=== PATIENT | female | born 1950 | race Caucasian/White ===

== ENCOUNTER 2018-05-14 20:03 | Inpatient (IN) | payer MEDICARE ==
[~2018-05-14] VITALS: Ht 172.7 cm; Wt 55.4 kg
[~2018-05-14 20:03] MED LIST: ASPI-378 PO; CHOL20007 PO; GABA300C10 PO; HYDR-531 PO; IBUP200C14 PO; LORA-655 PO; ONDA-143 PO; SERT-138 PO
[2018-05-14 21:03] LABS: Basophils # (auto) 0 uL; Basophils % (auto) 0.5 % (0.0-2.0); Eosinophils # (auto) 0.1 uL; Eosinophils % (auto) 1.2 % (0.0-7.0); Hematocrit 40.6 % (36.0-46.0); Hemoglobin 13.4 g/dL (12.2-16.2); Lymphocytes # (auto) 1.9 uL; Lymphocytes % (auto) 26.3 % (10.0-50.0); Mean Corpuscular Hemoglobin 31.6 pg (28.0-32.0); Mean Corpuscular Hgb Conc. 33.1 g/dL (32.0-36.0); Mean Corpuscular Volume 95.6 fL (80.0-100.0); Monocytes # (auto) 0.7 uL; Monocytes % (auto) 8.9 % (0.0-12.0); Neutrophils # (auto) 4.6 uL; Neutrophils % (auto) 63.1 % (37.0-80.0); Nucleated Red Blood Cells % 0.1 %; Platelet Count (auto) 342 10^3/uL (140-450); Red Blood Cells 4.24 10^6/uL (4.0-5.20); Red Cell Distribution Width 13.1 % (11.8-14.3); White Blood Cell 7.4 10^3/uL (4.4-10.8)
[2018-05-14 21:12] LABS: Albumin 3.7 g/dL (3.4-5.0); Anion Gap 8 (5-15); Blood Urea Nitrogen 16 mg/dL (7-18); Carbon Dioxide 24 mmol/L (21-32); Chloride 104 mmol/L (98-107); Glucose 91 mg/dL (74-106); Potassium 3.5 mmol/L (3.5-5.1); Sodium 136 mmol/L (136-145)
[2018-05-14 21:15] LABS: INR 0.94 (0.9-1.15); Partial Thromboplastin Time 29.8 sec (23.78-33.04); Prothrombin Time 10.1 sec (9.27-12.13)
[2018-05-14 21:17] LABS: Alanine Aminotransferase 61 U/L (13-56); Alkaline Phosphatase 74 U/L (45-117); Aspartate Aminotransferase 37 U/L (15-37); BUN/Creatinine Ratio 23.2; Bilirubin, Total 0.4 mg/dL (0.2-1.0); GFR African American 108 mL/min; GFR Non-African American 90 mL/min
[2018-05-14 22:21] LABS: Urine WBC None Seen /hpf (0 - 5)
[2018-05-14 22:29] LABS: Urine Bacteria NONE SEEN /hpf (None Seen); Urine Blood Negative /uL (Negative); Urine Specific Gravity 1.003 (1.001-1.035)
[2018-05-14] MEDS ORDERED: ALBUTEROL SULF 2.5 MG/0.5ML(0.5%) NEB SOLN NEB ONE (23:15)
[2018-05-15] VITALS (7 sets, daily range): BP systolic 100–145; BP diastolic 47–98
[2018-05-15] MEDS ORDERED: HYDROcodone-ACET 10/325MG TAB PO ONE (01:30)
[2018-05-15] MEDS ORDERED: ONDANSETRON HCL 4 MG/2 ML VIAL IV PRN (02:45)
[2018-05-15] MEDS ORDERED: NITROGLYCERIN 0.4 MG SL TAB SL PRN (02:45)
[2018-05-15] MEDS ORDERED: cloNIDine HCL 0.1 MG TAB PO PRN (02:45)
[2018-05-15] MEDS ORDERED: MORPHINE SULFATE 4 MG/ML SYR/VIAL IV PRN (02:45)
[2018-05-15] MEDS ORDERED: ATORVASTATIN 20 MG TAB PO ONE (02:45)
[2018-05-15] MEDS ORDERED: ACETAMINOPHEN 325 MG TAB PO PRN (02:45)
[2018-05-15] MEDS ORDERED: ENOXAPARIN SOD 60 MG/0.6 ML SYRINGE SC ONE (02:45)
[2018-05-15] MEDS: LISINOPRIL 10 MG TAB PO SCH (09:39)
[2018-05-15] MEDS: FAMOTIDINE 20 MG TAB PO SCH ×2 (09:39→21:39)
[2018-05-15] MEDS: LORazepam 0.5 MG TAB PO PRN ×2 (10:40→23:00)
[2018-05-15] MEDS: HYDROcodone-ACET 5/325MG TAB PO PRN ×2 (10:41→18:00)
[2018-05-15] MEDS: ATORVASTATIN 20 MG TAB PO SCH (21:38)
[2018-05-16 06:12] LABS: Basophils # (auto) 0 uL; Basophils % (auto) 0.5 % (0.0-2.0); Eosinophils # (auto) 0.1 uL; Eosinophils % (auto) 2.9 % (0.0-7.0); Hematocrit 37.4 % (36.0-46.0); Hemoglobin 12.5 g/dL (12.2-16.2); Lymphocytes # (auto) 1.8 uL; Lymphocytes % (auto) 43.4 % (10.0-50.0); Mean Corpuscular Hemoglobin 31.9 pg (28.0-32.0); Mean Corpuscular Hgb Conc. 33.5 g/dL (32.0-36.0); Mean Corpuscular Volume 95.4 fL (80.0-100.0); Monocytes # (auto) 0.5 uL; Monocytes % (auto) 12.3 % (0.0-12.0); Neutrophils # (auto) 1.7 uL; Neutrophils % (auto) 40.9 % (37.0-80.0); Nucleated Red Blood Cells % 0.1 %; Platelet Count (auto) 302 10^3/uL (140-450); Red Blood Cells 3.92 10^6/uL (4.0-5.20); Red Cell Distribution Width 13.3 % (11.8-14.3); White Blood Cell 4.1 10^3/uL (4.4-10.8)
[2018-05-16 06:26] LABS: Albumin 2.8 g/dL (3.4-5.0); Calcium 8.7 mg/dL (8.5-10.1)
[2018-05-16 06:30] LABS: Bilirubin, Total 0.6 mg/dL (0.2-1.0); Total Protein 5.7 g/dL (6.4-8.2)
[2018-05-16 08:00] VITALS: BP 101/69
[2018-05-16] MEDS: HYDROcodone-ACET 5/325MG TAB PO PRN ×3 (08:59→21:44)
[2018-05-16 09:00] VITALS: BP 101/69
[2018-05-16] MEDS: FAMOTIDINE 20 MG TAB PO SCH ×2 (09:00→21:44)
[2018-05-16] MEDS: LISINOPRIL 10 MG TAB PO SCH (09:01)
[2018-05-16] MEDS: LORazepam 0.5 MG TAB PO PRN (12:18)
[2018-05-16 12:55] VITALS: BP 124/93
[2018-05-16] MEDS ORDERED: IPRATROPIUM BROM 0.5 MG/2.5ML INH SOL NEB PRN (16:30)
[2018-05-16] MEDS ORDERED: ALBUTEROL SULF 2.5 MG/0.5ML(0.5%) NEB SOLN NEB PRN (16:30)
[2018-05-16 17:00] VITALS: BP 107/56
[2018-05-16 20:41] VITALS: BP 107/56
[2018-05-16] MEDS: ATORVASTATIN 20 MG TAB PO SCH (21:44)
[2018-05-16 22:00] VITALS: BP 154/85
[2018-05-17] MEDS: LORazepam 0.5 MG TAB PO PRN (00:20)
[2018-05-17] MEDS ORDERED: guaiFENesin 200 MG/10 ML UD PO PRN (01:30)
[2018-05-17] MEDS: HYDROcodone-ACET 5/325MG TAB PO PRN ×2 (04:33→09:04)
[2018-05-17 05:00] VITALS: BP 130/69
[2018-05-17 06:27] LABS: Basophils # (auto) 0 uL; Basophils % (auto) 0.4 % (0.0-2.0); Eosinophils # (auto) 0.1 uL; Eosinophils % (auto) 2.2 % (0.0-7.0); Hemoglobin 13.7 g/dL (12.2-16.2); Lymphocytes % (auto) 17.9 % (10.0-50.0); Mean Corpuscular Hemoglobin 31.6 pg (28.0-32.0); Mean Corpuscular Hgb Conc. 33.3 g/dL (32.0-36.0); Mean Corpuscular Volume 94.9 fL (80.0-100.0); Monocytes # (auto) 0.6 uL; Monocytes % (auto) 10.8 % (0.0-12.0); Neutrophils # (auto) 3.7 uL; Neutrophils % (auto) 68.7 % (37.0-80.0); Platelet Count (auto) 308 10^3/uL (140-450); Red Blood Cells 4.32 10^6/uL (4.0-5.20); Red Cell Distribution Width 13.2 % (11.8-14.3); White Blood Cell 5.3 10^3/uL (4.4-10.8)
[2018-05-17 06:33] LABS: Calcium 9.1 mg/dL (8.5-10.1); Magnesium 2.7 mg/dL (1.6-2.6); Potassium 4.2 mmol/L (3.5-5.1)
[2018-05-17 06:38] LABS: BUN/Creatinine Ratio 16.9
[2018-05-17 08:00] VITALS: BP 151/59
[2018-05-17 08:59] VITALS: BP 151/59
[2018-05-17] MEDS: FAMOTIDINE 20 MG TAB PO SCH (09:05)
[2018-05-17] MEDS: LISINOPRIL 10 MG TAB PO SCH (09:05)
[2018-05-17] MEDS ORDERED: ASPirin-EC 81 mg tab PO SCH (10:00)
[2018-05-17 12:30] VITALS: BP 135/66
[2018-05-17 14:12] VITALS: BP 135/66
[2018-05-17 17:00] VITALS: BP 122/75
== END 2018-05-17 18:30 | disposition home or self-care (01) | DRG 281 ==
LOC: EDBD 20:03 → ER 20:07 → TELE 05-15 01:25 → TELE-EAST 05-15 04:19
PROVIDERS: ADMIT Nurse Practitioner; ATTEND Internal Medicine Pulmonary Disease
DX: R07.89 Other chest pain (principal); I21.4 Non-ST elevation (NSTEMI) myocardial infarction; F11.20 Opioid dependence, uncomplicated; E78.5 Hyperlipidemia, unspecified; I10 Essential (primary) hypertension; F41.9 Anxiety disorder, unspecified; J44.9 Chronic obstructive pulmonary disease, unspecified; G89.4 Chronic pain syndrome; F32.9 Major depressive disorder, single episode, unspecified; F17.210 Nicotine dependence, cigarettes, uncomplicated; F12.90 Cannabis use, unspecified, uncomplicated; I25.2 Old myocardial infarction; Z82.49 Family history of ischemic heart disease and other diseases of the circulatory system; Z83.3 Family history of diabetes mellitus; Z90.710 Acquired absence of both cervix and uterus; Z88.6 Allergy status to analgesic agent; Z88.1 Allergy status to other antibiotic agents; Z88.0 Allergy status to penicillin; Z88.2 Allergy status to sulfonamides; Z88.8 Allergy status to other drugs, medicaments and biological substances; Z90.49 Acquired absence of other specified parts of digestive tract; Z71.6 Tobacco abuse counseling
CPT/HCPCS: 36415; 71046; 80048; 80053; 80061; 81001; 83735; 83880; 84484; 85025; 85610; 85730; 87081; 93005; 94640; 96372; G0378; J2405

== ENCOUNTER 2019-09-21 16:03 | Emergency (ER) | payer MEDICARE ==
[~2019-09-21] VITALS: Ht 162.6 cm; Wt 59.0 kg
[~2019-09-21 16:03] MED LIST changes: -SERT-138 PO; +SERT50TA PO
[2019-09-21] MEDS ORDERED: HYDROcodone-ACET 5/325MG TAB PO ONE (16:30)
[2019-09-21 19:28] VITALS: BP 107/47
== END 2019-09-21 18:22 | disposition home or self-care (01) ==
LOC: EDBD 16:03 → ER 16:03
DX: M54.5 Low back pain (principal); G89.29 Other chronic pain; J44.9 Chronic obstructive pulmonary disease, unspecified; I10 Essential (primary) hypertension; I25.2 Old myocardial infarction; Z88.2 Allergy status to sulfonamides; Z88.0 Allergy status to penicillin; Z88.6 Allergy status to analgesic agent; Z88.8 Allergy status to other drugs, medicaments and biological substances
CPT/HCPCS: 72131

== ENCOUNTER 2020-10-04 19:32 | Emergency (ER) | payer MEDICARE, OTHER ==
[~2020-10-04] VITALS: Ht 172.7 cm; Wt 58.1 kg
[2020-10-04] MEDS ORDERED: BACITRACIN TOP OINT 1 UD PKG TOP ONE (23:00)
[2020-10-04] MEDS ORDERED: cefTRIAXone SOD 1,000 MG VL IM ONE (23:00)
[2020-10-04] MEDS ORDERED: HYDROcodone-ACET 5/325MG TAB PO ONE (23:15)
[2020-10-04 23:17] VITALS: BP 126/86
== END 2020-10-04 23:23 | disposition home or self-care (01) ==
LOC: ER 19:33
DX: S51.852A Open bite of left forearm, initial encounter (principal); S51.832A Puncture wound without foreign body of left forearm, initial encounter; L03.114 Cellulitis of left upper limb; J44.9 Chronic obstructive pulmonary disease, unspecified; I10 Essential (primary) hypertension; I25.2 Old myocardial infarction; F17.210 Nicotine dependence, cigarettes, uncomplicated; Z90.49 Acquired absence of other specified parts of digestive tract; Z90.710 Acquired absence of both cervix and uterus; Z79.82 Long term (current) use of aspirin; Z79.1 Long term (current) use of non-steroidal anti-inflammatories (NSAID); Z79.899 Other long term (current) drug therapy; Z88.0 Allergy status to penicillin; Z88.2 Allergy status to sulfonamides; Z88.1 Allergy status to other antibiotic agents; Z88.8 Allergy status to other drugs, medicaments and biological substances; W55.01XA Bitten by cat, initial encounter; Y93.89 Activity, other specified; Y92.89 Other specified places as the place of occurrence of the external cause; Y99.8 Other external cause status
CPT/HCPCS: 73090; 96372; 99283; J0696

== ENCOUNTER 2021-12-12 10:32 | Emergency (ER) | payer OTHER ==
[~2021-12-12] VITALS: Ht 172.7 cm; Wt 58.5 kg
[2021-12-12 10:36] VITALS: BP 143/104
[2021-12-12 11:09] LABS: Basophils # (auto) 0 10 ^3/uL (0-0.2); Basophils % (auto) 0.5 % (0.0-2.0); Eosinophils # (auto) 0.1 10 ^3/uL (0-0.8); Eosinophils % (auto) 1.2 % (0.0-7.0); Hematocrit 40.2 % (36.0-46.0); Hemoglobin 12.8 g/dL (12.2-16.2); Lymphocytes # (auto) 2.6 10 ^3/uL (0.4-5.4); Mean Corpuscular Hgb Conc. 31.9 g/dL (32.0-36.0); Mean Corpuscular Volume 94.1 fL (80.0-100.0); Monocytes # (auto) 0.8 10 ^3/uL (0-1.3); Monocytes % (auto) 10.6 % (0.0-12.0); Neutrophils # (auto) 3.9 10 ^3/uL (1.6-8.6); Neutrophils % (auto) 52.7 % (37.0-80.0); Red Blood Cells 4.27 10^6/uL (4.0-5.20); Red Cell Distribution Width 13.9 % (11.8-14.3); White Blood Cell 7.3 10^3/uL (4.4-10.8)
[2021-12-12 11:29] LABS: Albumin 3.8 g/dL (3.4-5.0); Calcium 9.6 mg/dL (8.5-10.1); Potassium 4.9 mmol/L (3.5-5.1)
[2021-12-12 11:32] LABS: BUN/Creatinine Ratio 14.9; Bilirubin, Total 0.6 mg/dL (0.2-1.0); Total Protein 6.8 g/dL (6.4-8.2)
== END 2021-12-12 12:52 | disposition left against medical advice (07) ==
LOC: ER 10:32
DX: R07.89 Other chest pain (principal); F41.8 Other specified anxiety disorders; Z53.21 Procedure and treatment not carried out due to patient leaving prior to being seen by health care provider
CPT/HCPCS: 36415; 80053; 84484; 85025; 93005

== ENCOUNTER 2024-01-27 10:45 | Emergency (ER) | payer OTHER ==
[~2024-01-27] VITALS: Ht 172.7 cm; Wt 64.2 kg
[~2024-01-27 10:45] MED LIST changes: +GABA-1250 PO; -GABA300C10 PO
--- NOTE | 2024-01-27 11:20 | ED.PDOC ---
Back pain HPI HPI Comments HPI: Extremely poor historian 73-year-old female presents to emergency department for evaluation of a fall three days ago. She said she tripped and fell in his shoe lace. She fell forward and to the right side. Denies any loss of consciousness or head injury. Patient is not on blood thinners. Patient has chronic low back pain. Patient complains of right upper extremity pain but is not able to specifically point where her pain is. Patient has normal range of motion of bilateral upper extremities. No apparent swelling or deformity or erythema. Patient ambulates with a cane. Vitals: Temp:97.6 F Heart rate: 87 RR: 16 BP: 133/100 02 sat: 98% on room air PMH: Hypertension, anxiety, IN and cancer, HLD, HTN, chronic low back pain PSH: SPINAL SURGERY , Hysterectomy and cholecystectomy, PTCA, TONSILLECTOMY Social history: ENDORSES tobacco use, ENDORSES ETOH use, ENDORSES drug use (MARIJUANA) Meds: VIT D3, ONDANSETRON, NORCO , ATIVAN, LOREZAPAM Allergies: PENICILLIN, ATENOLOL, ERYTHROMYCIN, ASPIRIN, SULFA, TETRACYCLINE REVIEW OF SYSTEMS: CONSTITUTIONAL: Denies acute: fever, diaphoresis, chills, generalized weakness. HEAD: Denies acute: headache, photophobia Eyes: Denies acute: Double vision, vision loss, eye pain, eye discharge. EARS: Denies acute: tinnitus, hearing loss, ear discharge, ear pain, THROAT: Denies acute: sore throat, swelling, difficulty swallowing , pain with swallowing, change in voice. NECK: Denies acute: neck pain, neck swelling, stiff neck. HEART: Denies acute : chest pain, palpitations, LUNGS: Denies acute: SOB, wheezing, cough, hemoptysis ABDOMEN: Denies acute: abdominal pain, Nausea, Vomiting, diarrhea, melena , hematemesis, hematochezia SKIN: Denies acute: rash, redness, lesions, itchiness. EXTREMITIES: Denies acute: calf pain, numbness, tingling, weakness, Neuro: Denies acute: focal neurological deficit, motor or sensory focal neurological deficit, tremors, seizure like activity, confusion, dizziness, change in mental status, loss of bowel or bladder function, cauda equina like symptoms. : Denies acute: dysuria, hematuria, flank pain, increase in urinary frequency. PSYCH: Denies acute: hallucination, suicidal ideation, homicidal ideation. FEMALE: Denies acute: abnormal vaginal bleeding, foul odor, unusual discharge. PHYSICAL EXAM: General: no acute distress, awake and alert. Head: normocephalic, atraumatic. Neck: supple, trachea is midline, no swelling. Throat: Normal phonation. Eyes:, no erythema, no purulent discharge, no proptosis, no icterus. Heart: regular rate, regular rhythm, no significant murmur appreciated. Lungs: no apparent respiratory distress, Able to speak in full sentences. No wheezing, no rhonchi, no crackles. No stridors Clear to auscultation bilaterally. Abdomen: non tender to palpation, non distended, soft, no guarding, no rebound, + bowel sounds. Neuro: Awake, Alert, oriented to name, self, situation, follows commands GCS=15. Speech is normal. Skin: no petechia, no purpura, no cyanosis, non-pale, not jaundice. Lower extremities: --trace bilateral - Pitting edema no deformity, no focal swelling, no calf TTP. Makes eye contact. moves all four extremities. Evaluation of the right upper extremity. Patient is neurovascularly intact in the affected extremity. Radial pulses palpable sensation and motor are present. No apparent deformity or swelling. Normal range of motion. Face: no apparent facial droop. No CVA tenderness to percussion bilaterally. Ambulating in the ED independently. Palpation of the thoracic lumbar region reveals no step-off, no swelling, no focal tenderness to palpation. No nuchal rigidity, Kernig's sign, Brudzinski's sign, no meningeal signs. Chief Complaint: Fall Injury Time Seen by MD: 11:29 Primary Care Provider: MARCE Reviewed Notes: Medications, Allergies Allergies: Coded Allergies: Atenolol (Verified Allergy, Intermediate, 06/23/11) Erythromycin (Verified Allergy, Intermediate, 06/23/11) Aspirin (Verified Allergy, Unknown, 09/30/17) Ketorolac (Verified Allergy, Unknown, 09/30/17) Lidocaine (Verified Allergy, Unknown, 09/30/17) Penicillins (Verified Allergy, Unknown, 09/30/17) Sulfa Drugs (Verified Allergy, Unknown, 09/30/17) Tetracycline (Verified Allergy, Unknown, 09/30/17) Home Meds Reported Medications Cholecalciferol (VITAMIN D3) 2,000 Unit Tab, 1 TAB PO DAILY, #30 TAB 5 Refills 05/11/18 Ondansetron (Zofran) 8 Mg Tab, 1 TAB PO Q8HR, #30 TAB 1 Refill 05/11/18 Sertraline Hcl (Zoloft) 50 Mg Tab, 1 TAB PO DAILY, #30 TAB 1 Refill 05/11/18 Aspirin (ANNIE ASPIRIN EC LOW DOSE) 81 Mg Tab, 1 TAB PO DAILY, #30 TAB 3 Refills 05/11/18 Hydrocodone-Acetaminophen ([place] 10-325 mg) 1 Tab Tab, 1 TAB PO Q6HPRN PRN for MODERATE PAIN, TAB 10/01/17 Ibuprofen (Advil) 200 Mg Cap, 200 MG PO BID, CAP 10/01/17 Gabapentin (Gabapentin) 300 Mg Cap, 300 MG PO TID, MG 10/01/17 Lorazepam (Ativan) 0.5 Mg Tab, 0.5 MG PO TID, TAB 10/01/17 Information Source: Patient Mode of Arrival: Wheelchair Brought in by: SELF Past Medical History PAST MEDICAL HISTORY: Angina, Cancer, COPD, HTN, IN Surgical History: Appendectomy, Cholecystectomy, Hysterectomy, PTCA, Tonsillectomy FUNDRAISING SPECIALIST History: Denies all FUNDRAISING SPECIALIST Hx Family History Family History: Reviewed,noncontributory to illness, Family hx of DM, Family hx of heart surendra, Family hx of HTN Social History Smoker: Cigarettes, Less Than 1 Pack/Day Alcohol: Occasionally Drugs: Marijuana Lives In: Home Was a procedure done? Was a procedure done?: No Back Pain Differential Dx Differential Diagnosis: Fracture, Musculoskeletal Pain, Strain, Other (Neurovascular injury, hematoma, spinal cord injury,) X-Ray, Labs, Meds, VS Vital Signs Date Time Temp Pulse Resp B/P (MAP) Pulse Ox O2 Delivery O2 Flow Rate FiO2 01/27/24 16:51 87 16 98 Room Air 01/27/24 16:51 97.6 87 16 134/63 (86) 98 97.6 01/27/24 11:16 97.6 87 16 133/100 (111) 98 Lab Test 01/27/24 13:22 01/27/24 11:27 Range/Units Lactic Acid Level 0.9 2.3 *H 0.4-2.0 mmol/L White Blood Count 9.2 4.4-10.8 10^3/uL Red Blood Count 4.05 4.0-5.20 10^6/uL Hemoglobin 12.8 12.2-16.2 g/dL Hematocrit 38.9 36.0-46.0 % Mean Corpuscular Volume 96.0 80.0-100.0 fL Mean Corpuscular Hemoglobin 31.7 28.0-32.0 pg Mean Corpuscular Hemoglobin Concent 33.0 32.0-36.0 g/dL Red Cell Distribution Width 15.9 H 11.8-14.3 % Platelet Count 424 140-450 10^3/uL Mean Platelet Volume 8.4 6.9-10.8 fL Neutrophils (%) (Auto) 56.5 37.0-80.0 % Lymphocytes (%) (Auto) 26.5 10.0-50.0 % Monocytes (%) (Auto) 11.4 0.0-12.0 % Eosinophils (%) (Auto) 4.2 0.0-7.0 % Basophils (%) (Auto) 1.4 0.0-2.0 % Neutrophils # (Auto) 5.2 1.6-8.6 10 ^3/uL Lymphocytes # (Auto) 2.4 0.4-5.4 10 ^3/uL Monocytes # (Auto) 1.1 0-1.3 10 ^3/uL Eosinophils # (Auto) 0.4 0-0.8 10 ^3/uL Basophils # (Auto) 0.1 0-0.2 10 ^3/uL Nucleated Red Blood Cells 0.2 % Sodium Level 143 136-145 mmol/L Potassium Level 3.1 L 3.5-5.1 mmol/L Chloride Level 113 H 98-107 mmol/L Carbon Dioxide Level 27 20-31 mmol/L Anion Gap 3 L 5-15 Blood Urea Nitrogen 20 9-23 mg/dL Creatinine 0.84 0.550-1.02 mg/dL Glomerular Filtration Rate Calc 73 >90 mL/min BUN/Creatinine Ratio 23.8 H 10.0-20.0 Serum Glucose 127 H 74-106 mg/dL Calcium Level 9.2 8.7-10.4 mg/dL Total Bilirubin 0.4 0.2-1.0 mg/dL Aspartate Amino Transferase (AST) 22 13-40 U/L Alanine Aminotransferase (ALT) 30 7-40 U/L Alkaline Phosphatase 103 46-116 U/L Troponin I High Sensitivity 23 </=34 ng/L Total Protein 5.5 L 5.7-8.2 g/dL Albumin 3.2 3.2-4.8 g/dL Current Medications Medications (Trade) Dose Ordered Sig/Freedom Route Start Time Stop Time Status Last Admin Potassium Chloride (Klor-Con Tablet) 40 meq ONCE ONCE PO 01/27/24 13:45 01/27/24 14:37 DC 01/27/24 16:[address] [address] Ph: [phone] DIAGNOSTIC IMAGING Diagnostic Imaging Report : [id number] Signed PATIENT: KERA FAUSTIN ACCT: [id number] UNIT: [id number] : 1950 LOC: ER ROOM / BED: / AGE / SEX: 73 / F ADM STATUS: REG ER SERVICE 1120 ORDERING PHYSICIAN: ANNE BRUNO DO PROCEDURE(s): RHUM - R HUMERUS XRAY REASON: fall ORDER NUMBER(s): [id number], ACCESSION NUMBER(s): [id number] CLINICAL INDICATION: fall, trauma, pain TECHNIQUE: 4 radiographic views of the right humerus and forearm were obtained. Comparison: None FINDINGS: Advanced degenerative changes of the proximal humerus. Cortical lucency at the medial aspect of the proximal humeral head may represent a nondisplaced fracture. The visualized joint space is well maintained. The alignment is anatomical. Soft tissues are unremarkable. IMPRESSION: Cortical lucency at the medial aspect of the proximal humeral head may represent a nondisplaced fracture. ATED BY: BRICE PADILLA MD DICTATED DATE/TIME: 01/27/241225 SIGNED BY: BRICE PADILLA MD SIGNED DATE/TIME: 01/27/241225 CC: [address] [address] Ph: [phone] DIAGNOSTIC IMAGING Diagnostic Imaging Report : [id number] Signed PATIENT: KERA FAUSTIN ACCT: [id number] UNIT: [id number] : 1950 LOC: ER ROOM / BED: / AGE / SEX: 73 / F ADM STATUS: REG ER SERVICE 1120 ORDERING PHYSICIAN: ANNE BRUNO DO PROCEDURE(s): RFOR - R FOREARM XRAY REASON: fall ORDER NUMBER(s): [id number], ACCESSION NUMBER(s): [id number] CLINICAL INDICATION: fall, trauma, pain TECHNIQUE: 4 radiographic views of the right humerus and forearm were obtained. Comparison: None FINDINGS: Advanced degenerative changes of the proximal humerus. Cortical lucency at the medial aspect of the proximal humeral head may represent a nondisplaced fracture. The visualized joint space is well maintained. The alignment is anatomical. Soft tissues are unremarkable. IMPRESSION: Cortical lucency at the medial aspect of the proximal humeral head may represent a nondisplaced fracture. ATED BY: BRICE PADILLA MD DICTATED DATE/TIME: 01/27/241225 SIGNED BY: BRICE PADILLA MD SIGNED DATE/TIME: 01/27/241225 CC: [place] [address] Ph: [phone] DIAGNOSTIC IMAGING Diagnostic Imaging Report : [id number] Signed PATIENT: KERA FAUSTIN ACCT: [id number] UNIT: [id number] : 1950 LOC: ER ROOM / BED: / AGE / SEX: 73 / F ADM STATUS: REG ER SERVICE 1059 ORDERING PHYSICIAN: ANNE BRUNO DO PROCEDURE(s): LS2CT - LS SPINE WO CONTRAST REASON: low back pain ORDER NUMBER(s): [id number], ACCESSION NUMBER(s): [id number] CLINICAL INFORMATION: 73 years old, Female; low back pain. TECHNIQUE: Axial CT images of the lumbar spine were obtained without IV contrast. Coronal and sagittal reformatted images were obtained, reviewed, and stored. One or more of the following dose reduction techniques were used: Automated exposure control. Adjustment of mA and/or kV according to patient size. CTDIvol = 10.59, 0.41, 0.07 mGy DLP = 424.83 mGy-cm COMPARISON: LS SPINE WO CONTRAST on DOS: 09/21/19 FINDINGS: There is there is straightening of the normal lumbar lordosis. Minimal retrolisthesis of L3 on L4. Vertebral body heights are maintained. Posterior elements are intact. No acute fracture. Paraspinal soft tissues are unremarkable. Incidental note is made of a left renal cyst measuring up to 3.5 cm. Dense calcification of the abdominal aorta with no aneurysm. Postsurgical changes of prior cholecystectomy partially visualized. Lumbar disc levels: L1-L2: No significant disc/facet abnormality. No significant spinal canal or neural foraminal stenosis. L2-L3: Disc bulge extending up to 0.9 cm in AP dimension causing at least moderate spinal canal stenosis, possibly severe spinal canal stenosis. There is effacement of the lateral recesses bilaterally. Facet hypertrophy with moderate to severe right and moderate left neural foraminal stenoses. L3-L4: Severe disc space narrowing. Posterior disc osteophyte complex mildly indenting the ventral aspect of the thecal sac. No significant spinal canal stenosis. Facet hypertrophy and dorsal spurring contributes to severe bilateral neural foraminal stenoses. L4-L5: Severe disc space narrowing. No significant spinal canal stenosis. Facet hypertrophy and dorsal spurring with severe bilateral neural foraminal stenoses. L5-S1: Moderate to severe disc space narrowing. No significant spinal canal stenosis. Facet hypertrophy with dorsal spurring contributing to moderate to severe bilateral neural foraminal stenoses. IMPRESSION: 1. Evidence of acute fracture. 2. Disc bulge at L2-L3 causing likely moderate to severe spinal canal stenosis and effacement of the lateral recesses. 3. Additional degenerative disc disease and facet disease with associated neural foraminal stenoses as detailed above. 4. Minimal retrolisthesis of L3 on L4 and straightening of the normal lumbar lordosis. 5. Additional findings as detailed above. ATED BY: LEVI CATES DO DICTATED DATE/TIME: 01/27/241226 SIGNED BY: LEVI CATES DO SIGNED DATE/TIME: 01/27/241226 CC: Time of 1ST Reevaluation: 16:10 Reevaluation 1ST: Improved Patient Education/Counseling: Diagnosis, Treatment Family Education/Counseling: No Family Present Comments Patient presented with the above HPI.--evaluation of a fall---workup was initiated. patient was found with the above mentioned diagnosis. Patient ED course and VS have been stabilized. Patient has been reassessed in the ED and remained in a stable condition. Pertinent incidental findings were discussed with the patient and/or family. Patient/family voices understanding and is agreeable with plan. Patient has been observed in the ED adequate length of time to insure improvement/stability. patient was discharged home in a stable condition. Patient has [place] at home. Patient was given a right upper extremity shoulder sling. All the reports of any imaging studies that were ordered by myself were reviewed by myself. Departure 1 Departure Time of Disposition: 16:10 Impression: Primary Impression: Fall Additional Impressions: Right arm pain Right humeral fracture Hypokalemia Disposition: HOME / SELF CARE / HOMELESS Condition: Stable Additional Instructions: Additional discharge instructions: You MUST follow-up with your primary care/family doctor in 1 to 2 days. If you are unable to see your primary care/family doctor, please return to our emergency room for re-assessment and re-evaluation in 1 to 2 days. Return to the emergency room here in our facility or to the nearest ER [facility] if your symptoms change or worsen. CONSULTATIONS: you MUST Follow-up for consultation as soon as possible with: orthopedic surgery DrCleo And spine doctor in 1-2 days. Please call for appointment. You MUST call the consultants office yourself to make an appointment. You may need to arrange that through your insurance and/or your primary/family doctor. If you are unable to see the new home sales consultant in 1 to 2 days, you must return to our emergency room (or any other ER of your choice) for re-assessment and re- evaluation. Adequate fluid hydration. Fall precautions. Ambulates with the assistance at all times. Wear the shoulder sling as instructed. Sedation precautions with the medications you are taking of [place] and Ativan. Below is a copy of your radiological report for follow up: [address] [address] Ph: [phone] DIAGNOSTIC IMAGING Diagnostic Imaging Report : [id number] Signed PATIENT: KREA FAUSTIN ACCT: [id number] UNIT: [id number] : 1950 LOC: ER ROOM / BED: / AGE / SEX: 73 / F ADM STATUS: REG ER SERVICE 1120 ORDERING PHYSICIAN: ANNE BRUNO DO PROCEDURE(s): RHUM - R HUMERUS XRAY REASON: fall ORDER NUMBER(s): [id number], ACCESSION NUMBER(s): [id number] CLINICAL INDICATION: fall, trauma, pain TECHNIQUE: 4 radiographic views of the right humerus and forearm were obtained. Comparison: None FINDINGS: Advanced degenerative changes of the proximal humerus. Cortical lucency at the medial aspect of the proximal humeral head may represent a nondisplaced fracture. The visualized joint space is well maintained. The alignment is anatomical. Soft tissues are unremarkable. IMPRESSION: Cortical lucency at the medial aspect of the proximal humeral head may represent a nondisplaced fracture. ATED BY: BRICE PADILLA MD DICTATED DATE/TIME: 01/27/241225 SIGNED BY: BRICE PADILLA MD SIGNED DATE/TIME: 01/27/241225 CC: [place] [address] Ph: [phone] DIAGNOSTIC IMAGING Diagnostic Imaging Report : [id number] Signed PATIENT: KERA FAUSTIN ACCT: [id number] UNIT: [id number] : 1950 LOC: ER ROOM / BED: / AGE / SEX: 73 / F ADM STATUS: REG ER SERVICE 1120 ORDERING PHYSICIAN: ANNE BRUNO DO PROCEDURE(s): RFOR - R FOREARM XRAY REASON: fall ORDER NUMBER(s): [id number], ACCESSION NUMBER(s): [id number] CLINICAL INDICATION: fall, trauma, pain TECHNIQUE: 4 radiographic views of the right humerus and forearm were obtained. Comparison: None FINDINGS: Advanced degenerative changes of the proximal humerus. Cortical lucency at the medial aspect of the proximal humeral head may represent a nondisplaced fracture. The visualized joint space is well maintained. The alignment is anatomical. Soft tissues are unremarkable. IMPRESSION: Cortical lucency at the medial aspect of the proximal humeral head may represent a nondisplaced fracture. ATED BY: BRICE PADILLA MD DICTATED DATE/TIME: 01/27/241225 SIGNED BY: BRICE PADILLA MD SIGNED DATE/TIME: 01/27/241225 CC: [place] [address] Ph: [phone] DIAGNOSTIC IMAGING Diagnostic Imaging Report : [id number] Signed PATIENT: KERA FAUSTIN ACCT: [id number] UNIT: [id number] : 1950 LOC: ER ROOM / BED: / AGE / SEX: 73 / F ADM STATUS: REG ER SERVICE 58 ORDERING PHYSICIAN: ANNE BRUNO DO PROCEDURE(s): LS2CT - LS SPINE WO CONTRAST REASON: low back pain ORDER NUMBER(s): [id number], ACCESSION NUMBER(s): [id number] CLINICAL INFORMATION: 73 years old, Female; low back pain. TECHNIQUE: Axial CT images of the lumbar spine were obtained without IV contrast. Coronal and sagittal reformatted images were obtained, reviewed, and stored. One or more of the following dose reduction techniques were used: Automated exposure control. Adjustment of mA and/or kV according to patient size. CTDIvol = 10.59, 0.41, 0.07 mGy DLP = 424.83 mGy-cm COMPARISON: LS SPINE WO CONTRAST on DOS: 09/21/19 FINDINGS: There is there is straightening of the normal lumbar lordosis. Minimal retrolisthesis of L3 on L4. Vertebral body heights are maintained. Posterior elements are intact. No acute fracture. Paraspinal soft tissues are unremarkable. Incidental note is made of a left renal cyst measuring up to 3.5 cm. Dense calcification of the abdominal aorta with no aneurysm. Postsurgical changes of prior cholecystectomy partially visualized. Lumbar disc levels: L1-L2: No significant disc/facet abnormality. No significant spinal canal or ne ural foraminal stenosis. L2-L3: Disc bulge extending up to 0.9 cm in AP dimension causing at least moderate spinal canal stenosis, possibly severe spinal canal stenosis. There is effacement of the lateral recesses bilaterally. Facet hypertrophy with moderate to severe right and moderate left neural foraminal stenoses. L3-L4: Severe disc space narrowing. Posterior disc osteophyte complex mildly indenting the ventral aspect of the thecal sac. No significant spinal canal stenosis. Facet hypertrophy and dorsal spurring contributes to severe bilateral neural foraminal stenoses. L4-L5: Severe disc space narrowing. No significant spinal canal stenosis. Facet hypertrophy and dorsal spurring with severe bilateral neural foraminal stenoses. L5-S1: Moderate to severe disc space narrowing. No significant spinal canal stenosis. Facet hypertrophy with dorsal spurring contributing to moderate to severe bilateral neural foraminal stenoses. IMPRESSION: 1. Evidence of acute fracture. 2. Disc bulge at L2-L3 causing likely moderate to severe spinal canal stenosis and effacement of the lateral recesses. 3. Additional degenerative disc disease and facet disease with associated neural foraminal stenoses as detailed above. 4. Minimal retrolisthesis of L3 on L4 and straightening of the normal lumbar lordosis. 5. Additional findings as detailed above. ATED BY: LEVI CATES DO DICTATED DATE/TIME: 01/27/24 1227 SIGNED BY: LEVI CATES DO SIGNED DATE/TIME: 01/27/24 1227 CC: Discharged With: Self Critical Care Note Critical Care Time?: No I personally scribed for ANNE BRUNO DO (ARIC) on 01/27/24 at 11:20. Electronically submitted by Amilcar Cisneros (ONEL). I personally scribed for ANNE BRUNO DO (ARIC) on 01/27/24 at 11:30. Electronically submitted by Amilcar Cisneros (ONEL). I personally scribed for ANNE BRUNO DO (ARIC) on 01/27/24 at 16:14. Pavithra ctronically submitted by Amilcar Cisneros (ONEL). ANNE BRUNO DO Jan 27, 2024 11:20
[2024-01-27 12:04] LABS: Basophils # (auto) 0.1 10 ^3/uL (0-0.2); Basophils % (auto) 1.4 % (0.0-2.0); Eosinophils # (auto) 0.4 10 ^3/uL (0-0.8); Eosinophils % (auto) 4.2 % (0.0-7.0); Hematocrit 38.9 % (36.0-46.0); Hemoglobin 12.8 g/dL (12.2-16.2); Lymphocytes # (auto) 2.4 10 ^3/uL (0.4-5.4); Lymphocytes % (auto) 26.5 % (10.0-50.0); Mean Corpuscular Hemoglobin 31.7 pg (28.0-32.0); Monocytes # (auto) 1.1 10 ^3/uL (0-1.3); Monocytes % (auto) 11.4 % (0.0-12.0); Neutrophils # (auto) 5.2 10 ^3/uL (1.6-8.6); Neutrophils % (auto) 56.5 % (37.0-80.0); Nucleated Red Blood Cells % 0.2 %; Platelet Count (auto) 424 10^3/uL (140-450); Red Blood Cells 4.05 10^6/uL (4.0-5.20); Red Cell Distribution Width 15.9 % (11.8-14.3); White Blood Cell 9.2 10^3/uL (4.4-10.8)
--- NOTE | 2024-01-27 12:29 | DVH ---
CLINICAL INFORMATION: 73 years old, Female; low back pain. TECHNIQUE: Axial CT images of the lumbar spine were obtained without IV contrast. Coronal and sagitt al reformatted images were obtained, reviewed, and stored. One or more of the following dose reducti on techniques were used: Automated exposure control. Adjustment of mA and/or kV according to patient size. CTDIvol = 10.59, 0.41, 0.07 mGy DLP = 424.83 mGy-cm COMPARISON: LS SPINE WO CONTRAST on DOS: 09/21/19 FINDINGS: There is there is straightening of the normal lumbar lordosis. Minimal retrolisthesis of L3 on L4. Ve rtebral body heights are maintained. Posterior elements are intact. No acute fracture. Paraspinal so ft tissues are unremarkable. Incidental note is made of a left renal cyst measuring up to 3.5 cm. De nse calcification of the abdominal aorta with no aneurysm. Postsurgical changes of prior cholecystect lucia partially visualized. Lumbar disc levels: L1-L2: No significant disc/facet abnormality. No significant spinal canal or neural foraminal stenosi s. L2-L3: Disc bulge extending up to 0.9 cm in AP dimension causing at least moderate spinal canal steno sis, possibly severe spinal canal stenosis. There is effacement of the lateral recesses bilaterally. Facet hypertrophy with moderate to severe right and moderate left neural foraminal stenoses. L3-L4: Severe disc space narrowing. Posterior disc osteophyte complex mildly indenting the ventral as pect of the thecal sac. No significant spinal canal stenosis. Facet hypertrophy and dorsal spurring c ontributes to severe bilateral neural foraminal stenoses. L4-L5: Severe disc space narrowing. No significant spinal canal stenosis. Facet hypertrophy and dorsa l spurring with severe bilateral neural foraminal stenoses. L5-S1: Moderate to severe disc space narrowing. No significant spinal canal stenosis. Facet hypertrop hy with dorsal spurring contributing to moderate to severe bilateral neural foraminal stenoses. IMPRESSION: 1. Evidence of acute fracture. 2. Disc bulge at L2-L3 causing likely moderate to severe spinal canal stenosis and effacement of the lateral recesses. 3. Additional degenerative disc disease and facet disease with associated neural foraminal stenoses a s detailed above. 4. Minimal retrolisthesis of L3 on L4 and straightening of the normal lumbar lordosis. 5. Additional findings as detailed above.
--- NOTE | 2024-01-27 12:29 | DVH ---
CLINICAL INDICATION: fall, trauma, pain TECHNIQUE: 4 radiographic views of the right humerus and forearm were obtained. Comparison: None FINDINGS: Advanced degenerative changes of the proximal humerus. Cortical lucency at the medial aspect of the proximal humeral head may represent a nondisplaced fract ure. The visualized joint space is well maintained. The alignment is anatomical. Soft tissues are unremarkable. IMPRESSION: Cortical lucency at the medial aspect of the proximal humeral head may represent a nondisplaced fract ure.
--- NOTE | 2024-01-27 12:29 | DVH ---
CLINICAL INDICATION: fall, trauma, pain TECHNIQUE: 4 radiographic views of the right humerus and forearm were obtained. Comparison: None FINDINGS: Advanced degenerative changes of the proximal humerus. Cortical lucency at the medial aspect of the proximal humeral head may represent a nondisplaced fract ure. The visualized joint space is well maintained. The alignment is anatomical. Soft tissues are unremarkable. IMPRESSION: Cortical lucency at the medial aspect of the proximal humeral head may represent a nondisplaced fract ure.
[2024-01-27 12:30] LABS: Lactic Acid w/Reflex 2.3 mmol/L (0.4-2.0)
[2024-01-27 12:45] LABS: Alanine Aminotransferase 30 U/L (7-40); Albumin 3.2 g/dL (3.2-4.8); Alkaline Phosphatase 103 U/L (46-116); Anion Gap 3 (5-15); Aspartate Aminotransferase 22 U/L (13-40); BUN/Creatinine Ratio 23.8 (10.0-20.0); Bilirubin, Total 0.4 mg/dL (0.2-1.0); Blood Urea Nitrogen 20 mg/dL (9-23); Calcium 9.2 mg/dL (8.7-10.4); Carbon Dioxide 27 mmol/L (20-31); Chloride 113 mmol/L (98-107); Glucose 127 mg/dL (74-106); Potassium 3.1 mmol/L (3.5-5.1); Sodium 143 mmol/L (136-145); Total Protein 5.5 g/dL (5.7-8.2)
[2024-01-27] MEDS: SODIUM CHLORIDE 0.9% 1,000 ML IV ONE (13:45)
[2024-01-27] MEDS: POTASSIUM CHL 20 Meq TABLET PO ONE (16:48)
[2024-01-27 16:51] VITALS: BP 134/63; PULSE 87; RESP 16; TEMP 97.6; O2SAT 98
== END 2024-01-27 17:17 | disposition home or self-care (01) ==
LOC: ER 10:45
DX: S42.391A Other fracture of shaft of right humerus, initial encounter for closed fracture (principal); I10 Essential (primary) hypertension; F17.210 Nicotine dependence, cigarettes, uncomplicated; F15.90 Other stimulant use, unspecified, uncomplicated; M79.631 Pain in right forearm; E87.6 Hypokalemia; Z90.710 Acquired absence of both cervix and uterus; Z98.890 Other specified postprocedural states; Z88.0 Allergy status to penicillin; Z88.1 Allergy status to other antibiotic agents; Z88.8 Allergy status to other drugs, medicaments and biological substances; Z79.899 Other long term (current) drug therapy; W18.39XA Other fall on same level, initial encounter; Y93.89 Activity, other specified; Y92.89 Other specified places as the place of occurrence of the external cause; Y99.8 Other external cause status
CPT/HCPCS: 36415; 72131; 73060; 73090; 80053; 83605; 84484; 85025

== ENCOUNTER 2024-10-11 11:00 | Inpatient (IN) | payer OTHER ==
[~2024-10-11] VITALS: Ht 160 cm; Wt 78.5 kg
--- NOTE | 2024-10-11 11:27 | ED.PDOC ---
SOB-HPI HPI Comments 74 y.o female with PMHx of COPD, [place], angina, liver disease, breast cancer, presents to the ED via EMS for a chief complaint of SOB that started last night. Patient reports a history of a 3 week productive cough with brown phlegm sputum, states she took Ativan when SOB presented but woke up with no relief today. Patient denies any chest pain, fever, chills, nausea, vomiting. Patient is a tobacco user via smoking cigarettes. Upon ED arrival, SPO2 read 98% RA. 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 Family History Family History: Reviewed,noncontributory to illness, Family hx of DM, Family hx of heart surendra, Family hx of HTN Social History Smoker: Cigarettes, Less Than 1 Pack/Day Alcohol: Occasionally Drugs: Marijuana Lives In: Home Constitutional: denies: chills, diaphoresis, fatigue, fever, malaise, sweats, weakness, others EENTM: denies: blurred vision, double vision, ear bleeding, ear discharge, ear drainage, ear pain, ear ringing, eye pain, eye redness, hearing loss, mouth pain, mouth swelling, nasal discharge, nose bleeding, nose congestion, nose pain, photophobia, tearing, throat pain, throat swelling, voice changes, others Respiratory: reports: cough, SOB at rest, shortness of breath; denies: hemoptysis, orthopnea, SOB with excertion, stridor, wheezing, others Cardiovascular: denies: chest pain, dizzy spells, diaphoresis, Dyspnea on exertion, edema, irregular heart beat, left arm pain, lightheadedness, palpitations, PND, syncope, others Gastrointestinal: denies: abdomen distended, abdominal pain, blood streaked bowels, constipated, diarrhea, dysphagia, difficulty swallowing, hematemesis, melena, nausea, poor appetite, poor fluid intake, rectal bleeding, rectal pain, vomiting, others Genitourinary: denies: abnormal vagina bleeding, burning, dyspareunia, dysuria, flank pain, frequency, hematuria, incontinence, pain, , vagina discharge , urgency, others Neurological: denies: dizziness, fainting, headache, left sided numbness, left sided weakness, numbness, paresthesia, pre-existing deficit, right sided numbness, right sided weakness, seizure, speech problems, tingling, tremors, weakness, others Musculoskeletal: denies: back pain, gout, joint pain, joint swelling, muscle pain, muscle stiffness, neck pain, others Integumetry: denies: bruises, change in color, change in hair/nails, dryness, laceration, lesions, lumps, rash, wounds, others Allergic/Immunocompromised: denies: Difficulty Healing, Frequent Infections, Hives, Itching, others Hematologic/Lymphatic: denies: anemia, blood clots, easy bleeding, easy bruising, swollen glands, others Endocrine: denies: excessive hunger, excessive sweating, excessive thirst, excessive urination, flushing, intolerance to cold, intolerance to heat, unexplained weight gain, unexplained weight loss, others Psychiatric: denies: anxiety, bipolar disorder, depression, hopeless, panic di sorder, schizophrenia, sleepless, suicidal, others All Other Systems: Reviewed and Negative Physical Exam General Appearance: Moderate Distress HEENT: Normal ENT Inspection, Pharynx Normal, TMs Normal Neck: Full Range of Motion, Non-Tender, Normal, Normal Inspection Respiratory: Chest Non-Tender, Decreased Breath Sounds, No Accessory Muscle Use, Respiratory Distress, Wheezing Cardiovascular: No Edema, No JVD, No Murmur, No Gallop, Tachycardia Breast Exam: Deferred Gastrointestinal: No Organomegaly, Non Tender, No Pulsatile Mass, Normal Bowel Sounds, Soft Genitalia: Deferred Pelvic: Deferred Rectal: Deferred Extremities: No calf tenderness, Normal capillary refill, Normal inspection, Normal range of motion, Non-tender, No pedal edema Musculoskeletal : Apperance: Normal Neurologic: Alert, piper helper II-XII nml as Tested, Motor Weakness, Normal Affect, Normal Mood, No Sensory Deficits Cerebellar Function: Normal Reflexes: Normal Skin: Dry, Normal Color, Warm Lymphatic: No Adenopathy EKG EKG : Pulse Rate (adult): 73 Cardiac Rhythm: NSR Hypertrophy: KASSANDRA Was a procedure done? Was a procedure done?: No Differential Dx Differential Diagnosis: Asthma, Bronchitis, COPD, Pneumonia, Respiratory Distress, URI X-Ray, Labs, Meds, VS Vital Signs Date Time Temp Pulse Resp B/P (MAP) Pulse Ox O2 Delivery O2 Flow Rate FiO2 10/11/24 12:03 20 98 Room Air* 0 21 10/11/24 11:52 14 98 Room Air* 0 21 10/11/24 11:27 73 10/11/24 11:10 99.6 82 14 112/77 (89) 98 99.6 10/11/24 11:10 99.6 82 14 112/77 (89) 98 99.6 10/11/24 11:07 73 Lab Test 10/11/24 13:10 10/11/24 11:46 Range/Units Troponin I High Sensitivity Pending 48 *H </=34 ng/L White Blood Count 6.4 4.4-10.8 10^3/uL Red Blood Count 5.44 H 4.0-5.20 10^6/uL Hemoglobin 13.3 12.2-16.2 g/dL Hematocrit 41.6 36.0-46.0 % Mean Corpuscular Volume 76.5 L 80.0-100.0 fL Mean Corpuscular Hemoglobin 24.5 L 28.0-32.0 pg Mean Corpuscular Hemoglobin Concent 32.0 32.0-36.0 g/dL Red Cell Distribution Width 17.4 H 11.8-14.3 % Platelet Count 318 140-450 10^3/uL Mean Platelet Volume 8.0 6.9-10.8 fL Neutrophils (%) (Auto) 65.4 37.0-80.0 % Lymphocytes (%) (Auto) 17.1 10.0-50.0 % Monocytes (%) (Auto) 12.0 0.0-12.0 % Eosinophils (%) (Auto) 4.6 0.0-7.0 % Basophils (%) (Auto) 0.9 0.0-2.0 % Neutrophils # (Auto) 4.2 1.6-8.6 10 ^3/uL Lymphocytes # (Auto) 1.1 0.4-5.4 10 ^3/uL Monocytes # (Auto) 0.8 0-1.3 10 ^3/uL Eosinophils # (Auto) 0.3 0-0.8 10 ^3/uL Basophils # (Auto) 0.1 0-0.2 10 ^3/uL Nucleated Red Blood Cells 0.2 % Sodium Level 142 136-145 mmol/L Potassium Level 3.1 L 3.5-5.1 mmol/L Chloride Level 107 98-107 mmol/L Carbon Dioxide Level 22 20-31 mmol/L Anion Gap 13 5-15 Blood Urea Nitrogen 7 L 9-23 mg/dL Creatinine 0.87 0.550-1.02 mg/dL Glomerular Filtration Rate Calc 69 >90 mL/min BUN/Creatinine Ratio 8.0 L 10.0-20.0 Serum Glucose 119 H 74-106 mg/dL Calcium Level 9.4 8.7-10.4 mg/dL B-Type Natriuretic Peptide 1162.54 0-100 pg/mL Current Medications Medications (Trade) Dose Ordered Sig/Freedom Route Start Time Stop Time Status Last Admin Methylprednisolone Sodium Succinate (Solu Medrol) 125 mg ONCE ONCE IV 10/11/24 11:15 10/11/24 11:16 DC 10/11/24 12:16 Ipratropium [place] (Atrovent Medneb) 1 mg ONCE ONCE [facility] 10/11/24 11:15 10/11/24 11:16 DC 10/11/24 11:52 Albuterol (Ventolin Medneb) 10 mg ONCE ONCE N 10/11/24 11:15 10/11/24 11:16 DC 10/11/24 11:51 IV Hep-Lock was established The patient was given Solu-Medrol 125 mg IV push The patient was given a continuous breathing treatment of albuterol and Atrovent The BNP is 1062.54 The chest x-ray shows: IMPRESSION: Left basilar consolidation with left pleural effusion. The CBC is within normal limits The chemistry panel shows hypokalemia at 3.1 The patient was given potassium 20 mEq IV and 20 mEq p.o. The patient is being admitted at this time The patient's troponin level is elevated at 48 We will continue to follow the patient's troponin levels A cardiology consult will be obtained Images Reviewed?: Images reviewed and evaluated by me Time of 1ST Reevaluation: 11:26 Reevaluation 1ST: Unchanged Patient Education/Counseling: Diagnosis, Treatment, Prognosis Family Education/Counseling: No Family Present SEPSIS Sepsis Screen Date sepsis recognized/suspect: Oct 11, 2024 Time Sepsis recognized/suspect: 1104 Recent Procedure: No On Antibiotic Therapy: No Respiratory Rate >20: No Heart Rate >90: No Temp<36 C (96.8 F) or >38.3 C: No SBP <90 or MAP <65 mmHG: No New Acute Mental Status Change: No Is the patient on CPAP, BIPAP,: No Physician Orders Urinalysis (10/11/24 11:05) Med Neb Initial Treatment (10/11/24 11:05) Chest Portable (10/11/24 11:05) Heplock Iv (10/11/24 11:05) Pulse Oximetry (10/11/24 11:05) [place] (10/11/24 11:05) Blood Pressure (10/11/24 11:05) Electrocardigram (10/11/24 11:05) Troponin-I Hs (10/11/24 12:05) Troponin-I Hs (10/11/24 14:05) Electrocardigram (10/11/24 12:05) Electrocardigram (10/11/24 14:05) Vital Signs Date Time Temp Pulse Resp B/P (MAP) Pulse Ox O2 Delivery O2 Flow Rate FiO2 10/11/24 12:03 20 98 Room Air* 0 21 10/11/24 11:52 14 98 Room Air* 0 21 10/11/24 11:27 73 10/11/24 11:10 99.6 82 14 112/77 (89) 98 99.6 10/11/24 11:10 99.6 82 14 112/77 (89) 98 99.6 10/11/24 11:07 73 Laboratory Tests Test 10/11/24 11:46 White Blood Count 6.4 10^3/uL (4.4-10.8) Medications Medications Dose Ordered Sig/Freedom Route Start Time Stop Time Status Last Admin Dose Admin Albuterol 10 mg ONCE ONCE [facility] 10/11/24 11:15 10/11/24 11:16 DC 10/11/24 11:51 Ipratropium [place] 1 mg ONCE ONCE N 10/11/24 11:15 10/11/24 11:16 DC 10/11/24 11:52 Methylprednisolone Sodium Succinate 125 mg ONCE ONCE IV 10/11/24 11:15 10/11/24 11:16 DC 10/11/24 12:16 Departure 1 Departure Time of Disposition: 13:33 Impression: Primary Impression: Acute respiratory failure Qualified Codes: J96.01 - Acute respiratory failure with hypoxia Additional Impressions: COPD exacerbation Elevated troponin Elevated brain natriuretic peptide (BNP) level Pleural effusion, left Disposition: 09 ADMITTED INPATIENT Admit to: Tele Condition: Fair Critical Care Note Critical Care Time?: Yes (45 min-critical care time only) Stability Stability form required: Yes Unstable for transfer: Telemetry monitoring (Telemetry monitoring required), ED Physician Assesment (Clinical assesment) Heart Score Heart Score: Heart Score Response (Comments) Value History N/A 0 EKG N/A 0 Age N/A 0 Risk Factors N/A 0 Troponin N/A 0 Total 0 I personally scribed for MARIELA FERRARA MD ([email or web address]) on 10/11/24 at 11:27. Electronically submitted by Krupa Woodruff ([facility]). MARIELA FERRARA MD Oct 11, 2024 11:27
--- NOTE | 2024-10-11 11:36 | DVH ---
XY CHEST PORTABLE, HISTORY: sob COMPARISON: None None TECHNICAL DATA: 1 view of the chest was obtained. FINDINGS: Lines and tubes: None Cardiomediastinal silhouette: normal Pulmonary vasculature: normal Lung expansion: normal Lung airspace: Left basilar consolidation. Lung interstitium: normal Pleura: Left pleural effusion. Pneumothorax: no Bones: Unremarkable Other: no IMPRESSION: Left basilar consolidation with left pleural effusion.
[2024-10-11] MEDS: ALBUTEROL SULF 2.5 MG/0.5ML(0.5%) NEB SOLN HHN ONE (11:51)
[2024-10-11] MEDS: IPRATROPIUM BROM 0.5 MG/2.5ML INH SOL HHN ONE (11:52)
[2024-10-11 12:03] VITALS: RESP 20; O2SAT 98
[2024-10-11 12:11] LABS: Hematocrit 41.6 % (36.0-46.0); Hemoglobin 13.3 g/dL (12.2-16.2); Mean Corpuscular Hemoglobin 24.5 pg (28.0-32.0); Mean Corpuscular Volume 76.5 fL (80.0-100.0); Nucleated Red Blood Cells % 0.2 %
[2024-10-11] MEDS: methylPREDNISolone SOD SUCC 125 MG/2 ML VL IV ONE (12:16)
[2024-10-11 12:20] LABS: Sodium 142 mmol/L (136-145)
[2024-10-11 12:21] LABS: Anion Gap 13 (5-15); Calcium 9.4 mg/dL (8.7-10.4); Carbon Dioxide 22 mmol/L (20-31); Chloride 107 mmol/L (98-107); Potassium 3.1 mmol/L (3.5-5.1)
[2024-10-11 12:26] LABS: BUN/Creatinine Ratio 8.0 (10.0-20.0)
[2024-10-11 12:28] LABS: Blood Urea Nitrogen 7 mg/dL (9-23); Glucose 119 mg/dL (74-106)
[2024-10-11 14:06] LABS: Urine Protein, UAD Negative (Negative)
[2024-10-11] MEDS ORDERED: ONDANSETRON HCL 4 MG/2 ML VIAL IV PRN (15:45)
[2024-10-11] MEDS ORDERED: ACETAMINOPHEN 325 MG TAB PO PRN (15:45)
[2024-10-11] MEDS ORDERED: DOCUSATE SOD 100 MG CAP PO PRN (15:45)
[2024-10-11] MEDS ORDERED: ALBUTEROL SULF 2.5 MG/0.5ML(0.5%) NEB SOLN NEB PRN (15:45)
[2024-10-11] MEDS ORDERED: IPRATROPIUM BROM 0.5 MG/2.5ML INH SOL NEB PRN (15:45)
[2024-10-11 16:03] VITALS: PULSE 73; RESP 20; TEMP 99.6; O2SAT 98
--- NOTE | 2024-10-11 16:59 | DVHHP2 ---
History of Present Illness Reason for Visit: COPD with acute exacerbation History of Present Illness The patient is a 74-year-old female with past medical history of cancer, angina, COPD, [place], and hypertension who presented to [facility] ED with complaint of shortness of breaths. Patient reports she has been experiencing productive cough with brown phlegm sputum for the past 3 weeks, associated shortness of breaths at rest, increased work of breathing, getting worse that prompted this visit. Patient was seen and evaluated in the ED, laboratory data shows WBC 6.4, platelets 318, sodium 142, potassium 3.1, BUN seven, creatinine 0.87, glucose 119, calcium 9.4, troponin 45, BNP 1162.59, blood pressure 112/77, heart rate 73, temperature 99.6 F, O2 saturation 98% on oxygen. Chest x-ray revealing left bibasilar consolidation with left pleural effusion. Patient was started on IV Lasix, given breathing treatment, please see medication orders section in the computer. On my assessment, patient denied chest pain, no headache, no dizziness, no diaphoresis, currently on oxygen, no diarrhea, no nausea, no vomiting, no fever, no chills. Patient was admitted for further evaluation and medical management. Past Medical History Angina, Cancer, COPD, HTN, [place] Past Surgical History Appendectomy, Cholecystectomy, Hysterectomy, PTCA, Tonsillectomy Family History Reviewed, noncontributory to the management of this case. Past Social History The patient lives at home, smokes cigarettes less than 1 pack per day, drinks alcohol occasionally, uses marijuana. Review of Systems Constitutional: Yes: Weakness; No: Fever, Chills, Sweats, Malaise, Other Eyes: No: Pain, Vision change, Conjunctivae inflammation, Eyelid inflammation, Other, Redness ENT: No: Ear pain, Ear discharge, Nose pain, Nose discharge, Nose congestion, Mouth pain, Mouth swelling, Throat pain, Throat swelling, Other Respiratory: Cough, Shortness of breath, SOB with excertion, Other (SOB at rest); No: Dry, Wheezing, Hemoptysis, Pleuritic Pain, Sputum, Wheezing Cardiovascular: No: Chest Pain, Palpitations, Orthopnea, Paroxysmal Noc. Dyspnea, Edema, Lt Headedness, Other Gastrointestinal: No: Nausea, Vomiting, Abdominal Pain, Diarrhea, Constipation, Melena, Hematochezia, Other Genitourinary: No Dysuria, No Frequency, No Incontinence, No Hematuria, No Retention, No Other Musculoskeletal: No: other, neck pain, shoulder pain, arm pain, back pain, hand pain, leg pain, foot pain Skin: No: Rash, Lesions, Jaundice, Bruising, Other Neurological: No: Weakness, Numbness, Incoordination, Change in speech, Confusion, Seizures, Other Allergies: Coded Allergies: Atenolol (Verified Allergy, Intermediate, 06/23/11) Erythromycin (Verified Allergy, Intermediate, 06/23/11) Aspirin (Verified Allergy, Unknown, 09/30/17) Ketorolac (Verified Allergy, Unknown, 09/30/17) Lidocaine (Verified Allergy, Unknown, 09/30/17) Penicillins (Verified Allergy, Unknown, 09/30/17) Sulfa Drugs (Verified Allergy, Unknown, 09/30/17) Tetracycline (Verified Allergy, Unknown, 09/30/17) Medications Current Medications Medications Dose Ordered Sig/Freedom Route Start Time Stop Time Status Last Admin Dose Admin Famotidine 20 mg Q12HR IV 10/11/24 22:00 Methylprednisolone Sodium Succinate 40 mg Q8HR IV 10/11/24 22:00 Clopidogrel Bisulfate 75 mg DAILY PO 10/12/24 10:00 Albuterol 2.5 mg Q4HPRN PRN NEB 10/11/24 15:45 Ipratropium [place] 0.5 mg Q4HPRN PRN NEB 10/11/24 15:45 Furosemide 20 mg DAILY IV 10/12/24 10:00 Sodium Chloride 10 ml Q8HR IV 10/11/24 22:00 Acetaminophen/ Hydrocodone Bitart 1 tab Q4HP PRN PO 10/11/24 15:45 Ondansetron HCl 4 mg Q4HP PRN IV 10/11/24 15:45 Docusate Sodium 100 mg BIDPRN PRN PO 10/11/24 15:45 Acetaminophen 650 mg Q6HP PRN PO 10/11/24 15:45 Exam Vital Signs Vital Signs Date Time Temp Pulse Resp B/P (MAP) Pulse Ox O2 Delivery O2 Flow Rate FiO2 10/11/24 16:03 99.6 73 20 98 21 99.6 10/11/24 12:03 Room Air* 0 10/11/24 11:10 112/77 (89) General Appearance: Alert, Oriented X3, Cooperative, No acute distress HEENT: Atraumatic, PERRLA, EOMI, Mucous membr. moist/pink Respiratory: Clear to auscultation, Normal air movement Cardiovascular: Regular rate, Normal S1, Normal S2, No murmurs Abdominal: Normal bowel sounds, Soft, No tenderness, No hepatospenomegaly, No masses Extremities: No clubbing, No cyanosis, No edema, Normal pulses, No tenderness/swelling Skin: No rashes, No breakdown, No significant lesion Neuro: Normal speech, Normal tone, Sensation intact, Cranial nerves 3-12 NL, Reflexes 2+, Other (Generalized weakness) Psych/Mental Status: Mental status NL, Mood NL Labs/Xrays Labs Test 10/11/24 15:34 10/11/24 12:08 10/11/24 11:46 Range/Units Troponin I High Sensitivity 33 </=34 ng/L Urine Color Yellow Yellow Urine Clarity Hazy H Clear Urine pH 6.5 5.0-9.0 Urine Specific [place] 1.015 1.001-1.035 Urine Protein Negative Negative Urine Ketones Negative Negative Urine Blood Trace H Negative /uL Urine Nitrite Negative Negative Urine Bilirubin Negative Negative Urine Urobilinogen 2 H Negative mg/dL Urine Leukocyte Esterase Negative Negative /uL Urine RBC 2 0 - 4 /hpf Urine Microscopic WBC 5 0-5 /HPF Urine Squamous Epithelial Cells Few <5 /hpf Urine Bacteria Few H None Seen /hpf Urine Hyaline Casts Few 0 - 2 /lpf Urine Glucose Normal Normal mg/dL White Blood Count 6.4 4.4-10.8 10^3/uL Red Blood Count 5.44 H 4.0-5.20 10^6/uL Hemoglobin 13.3 12.2-16.2 g/dL Hematocrit 41.6 36.0-46.0 % Mean Corpuscular Volume 76.5 L 80.0-100.0 fL Mean Corpuscular Hemoglobin 24.5 L 28.0-32.0 pg Mean Corpuscular Hemoglobin Concent 32.0 32.0-36.0 g/dL Red Cell Distribution Width 17.4 H 11.8-14.3 % Platelet Count 318 140-450 10^3/uL Mean Platelet Volume 8.0 6.9-10.8 fL Neutrophils (%) (Auto) 65.4 37.0-80.0 % Lymphocytes (%) (Auto) 17.1 10.0-50.0 % Monocytes (%) (Auto) 12.0 0.0-12.0 % Eosinophils (%) (Auto) 4.6 0.0-7.0 % Basophils (%) (Auto) 0.9 0.0-2.0 % Neutrophils # (Auto) 4.2 1.6-8.6 10 ^3/uL Lymphocytes # (Auto) 1.1 0.4-5.4 10 ^3/uL Monocytes # (Auto) 0.8 0-1.3 10 ^3/uL Eosinophils # (Auto) 0.3 0-0.8 10 ^3/uL Basophils # (Auto) 0.1 0-0.2 10 ^3/uL Nucleated Red Blood Cells 0.2 % Sodium Level 142 136-145 mmol/L Potassium Level 3.1 L 3.5-5.1 mmol/L Chloride Level 107 98-107 mmol/L Carbon Dioxide Level 22 20-31 mmol/L Anion Gap 13 5-15 Blood Urea Nitrogen 7 L 9-23 mg/dL Creatinine 0.87 0.550-1.02 mg/dL Glomerular Filtration Rate Calc 69 >90 mL/min BUN/Creatinine Ratio 8.0 L 10.0-20.0 Serum Glucose 119 H 74-106 mg/dL Calcium Level 9.4 8.7-10.4 mg/dL B-Type Natriuretic Peptide 1162.54 0-100 pg/mL PATIENT: KERA FAUSTIN ACCT: [id number] UNIT: [id number] : 1950 LOC: ER ROOM / BED: / AGE / SEX: 74 / F ADM STATUS: REG ER SERVICE 1105 ORDERING PHYSICIAN: MARIELA FERRARA MD PROCEDURE(s): CXRP - CHEST PORTABLE REASON: sob ORDER NUMBER(s): [id number], ACCESSION NUMBER(s): [id number] XY CHEST PORTABLE, HISTORY: sob COMPARISON: None None TECHNICAL DATA: 1 view of the chest was obtained. FINDINGS: Lines and tubes: None Cardiomediastinal silhouette: normal Pulmonary vasculature: normal Lung expansion: normal Lung airspace: Left basilar consolidation. Lung interstitium: normal Pleura: Left pleural effusion. Pneumothorax: no Bones: Unremarkable Other: no IMPRESSION: Left basilar consolidation with left pleural effusion. SEPSIS Sepsis Screen Date sepsis recognized/suspect: Oct 11, 2024 Time Sepsis recognized/suspect: 1104 Recent Procedure: No On Antibiotic Therapy: No Respiratory Rate >20: No Heart Rate >90: No Temp<36 C (96.8 F) or >38.3 C: No SBP <90 or MAP <65 mmHG: No New Acute Mental Status Change: No Is the patient on CPAP, BIPAP,: No Physician Orders Med Neb Initial Treatment (10/11/24 11:05) Chest Portable (10/11/24 11:05) Heplock Iv (10/11/24 11:05) Pulse Oximetry (10/11/24 11:05) Through Operator (10/11/24 11:05) Blood Pressure (10/11/24 11:05) Electrocardigram (10/11/24 11:05) Electrocardigram (10/11/24 12:05) Electrocardigram (10/11/24 14:05) Famotidine Injection (Pepcid Injection) (10/11/24 22:00) Methylprednisolone Sod Succ (Solu Medrol (10/11/24 22:00) Clopidogrel Bisulfate (Plavix) (10/12/24 10:00) Albuterol Medneb (Ventolin Medneb) (10/11/24 15:45) Ipratropium Medneb (Atrovent Medneb) (10/11/24 15:45) Furosemide Injection (Lasix Injection) (10/11/24 15:45) Furosemide Injection (Lasix Injection) (10/12/24 10:00) Troponin-I Hs (10/11/24 20:00) Allergies (10/11/24 15:43) Code Status (10/11/24 15:43) Sodium Chloride Lock (Saline Lock Ns) (10/11/24 22:00) Oxygen Per Hour (10/11/24 15:43) Hydrocodone-Acet 5/325mg Tab ([place] 5/32 (10/11/24 15:45) Ondansetron Hcl (Zofran) (10/11/24 15:45) Docusate Sodium Capsule (Colace Capsule) (10/11/24 15:45) Complete Blood Count (10/12/24 04:00) Comprehensive Metabolic Panel (10/12/24 04:00) Cardiac Diet-2gna,Lofat,Lochol (10/11/24 Dinner) Echo 2d Mode Cardiac Dop (10/11/24 15:43) Condition: Serious (10/11/24 15:43) Acetaminophen Tablet (Tylenol Tablet) (10/11/24 15:45) Bedrest With Bathroom Privileg (10/11/24 15:43) Sequential Compression Device (10/11/24 ) Vital Signs Date Time Temp Pulse Resp B/P (MAP) Pulse Ox O2 Delivery O2 Flow Rate FiO2 10/11/24 16:03 99.6 73 20 98 21 99.6 10/11/24 12:03 20 98 Room Air* 0 21 10/11/24 11:52 14 98 Room Air* 0 21 10/11/24 11:27 73 10/11/24 11:10 99.6 82 14 112/77 (89) 98 99.6 10/11/24 11:10 99.6 82 14 112/77 (89) 98 99.6 10/11/24 11:07 73 Laboratory Tests Test 10/11/24 11:46 White Blood Count 6.4 10^3/uL (4.4-10.8) Medications Medications Dose Ordered Sig/Freedom Route Start Time Stop Time Status Last Admin Dose Admin Albuterol 10 mg ONCE ONCE [facility] 10/11/24 11:15 10/11/24 11:16 DC 10/11/24 11:51 10 MG Ipratropium [place] 1 mg ONCE ONCE N 10/11/24 11:15 10/11/24 11:16 DC 10/11/24 11:52 1 MG Methylprednisolone Sodium Succinate 125 mg ONCE ONCE IV 10/11/24 11:15 10/11/24 11:16 DC 10/11/24 12:16 125 MG Assessment/Plan Assessment/Plan Acute respiratory failure Hypokalemia Acute respiratory failure with hypoxia Elevated troponin Pleural effusion, left COPD with acute exacerbation Acute exacerbation of congestive heart failure Plan 1. Admit to telemetry unit 2. Breathing treatment 3. Pain control management 4. Management of fluids and electrolytes 5. Consultation for hospitalist 6. Diagnostic tests chest x-ray 7. DVT prophylaxis-on Plavix 8. Repeat labs CBC, CMP in a.m. 9. Continue with current medical management 10. Treatment plan discussed with patient and RN. Patient verbalized understanding. Plan discussed with: Patient, Other (RN) My Orders Orders - JEY PIRES DNP Procedure Category Date Status Time Famotidine Injection PHA 10/11/24 In Process (Pepcid Injection) 22:00 Methylprednisolone PHA 10/11/24 In Process Sod Succ (Solu Medrol 22:00 Clopidogrel Bisulfate PHA 10/12/24 In Process (Plavix) 10:00 Albuterol Medneb PHA 10/11/24 In Process (Ventolin Medneb) 15:45 Ipratropium Medneb PHA 10/11/24 In Process (Atrovent Medneb) 15:45 Furosemide Injection PHA 10/11/24 In Process (Lasix Injection) 15:45 Furosemide Injection PHA 10/12/24 In Process (Lasix Injection) 10:00 Troponin-I Hs LAB 10/11/24 Logged 20:00 Allergies DENAE 10/11/24 In Process 15:43 Code Status CODE 10/11/24 Transmitted 15:43 Sodium Chloride Lock PHA 10/11/24 In Process (Saline Lock Ns) 22:00 Oxygen Per Hour RT 10/11/24 Transmitted 15:43 Hydrocodone-Acet PHA 10/11/24 In Process 5/325mg Tab ([place] 15:45 Ondansetron Hcl PHA 10/11/24 In Process (Zofran) 15:45 Docusate Sodium PHA 10/11/24 In Process Capsule (Colace 15:45 Complete Blood Count LAB 10/12/24 Verified 04:00 Comprehensive LAB 10/12/24 Verified Metabolic Panel 04:00 Cardiac DIET 10/11/24 Transmitted Diet-2gna,Lofat,Lochol Dinner Echo 2d Mode Cardiac US 10/11/24 Logged DOP 15:43 Condition: Serious DENAE 10/11/24 In Process 15:43 Acetaminophen Tablet PHA 10/11/24 In Process (Tylenol Tablet) 15:45 Bedrest With Bathroom DENAE 10/11/24 In Process Privileg 15:43 Sequential DENAE 10/11/24 In Process Compression Device Problem List: (1) Acute respiratory failure (2) Pleural effusion, left (3) Hypokalemia (4) Acute respiratory failure with hypoxia (5) Elevated troponin (6) COPD with acute exacerbation (7) Acute exacerbation of congestive heart failure Date of Service: Oct 11, 2024 Billing Provider: JEY PIRES DNP Common Visit Codes: [id number] INP/OBS CARE (HIGH) JEY PIRES DNP Oct 11, 2024 16:59
[2024-10-11] MEDS ORDERED: NITROGLYCERIN 0.4 MG SL TAB SL PRN (17:00)
[2024-10-11] MEDS ORDERED: MORPHINE SULFATE INJ 2 MG/ml SYRG IV PRN (17:00)
[2024-10-11] MEDS: CLOPIDOGREL BISULFATE 75 MG TAB PO ONE (18:37)
[2024-10-11] MEDS: FUROSEMIDE 20 MG/2 ML VIAL IV ONE (18:37)
[2024-10-11] MEDS: POTASSIUM CHL 20 Meq TABLET PO ONE (18:37)
--- NOTE | 2024-10-11 19:11 | ECG ---
[facility] Test Date: 2024-10-11 Test Time: 11:07:40 Pat Name: KERA FAUSTIN Department: ED Room: 0239T Gender: F Rn Progressive Care: LIA : 1950 Requested By: MARIELA FERRARA Order Number: [id number] Reading MD: Conrado Valadez Measurements Intervals [place] Rate: 73 P: 4 MI: 156 QRS: 110 QRSD: 102 T: 0 QT: 589 QTc: 650 Interpretive Statements Sinus rhythm Probable left atrial enlargement Right axis deviation Low voltage, extremity leads Prolonged QT interval Electronically Signed On 10-13-2024 17:49:55 PDT by Conrado Valadez Please click the below link to view image of tracing.
[2024-10-11 21:06] VITALS: O2SAT 94
[2024-10-12] VITALS (12 sets, daily range): BP systolic 130–139; BP diastolic 78–91; PULSE 53–96; RESP 16–19; TEMP 97.3–98.6; O2SAT 91–98
[2024-10-12] MEDS: FAMOTIDINE (10MG/ML) 2ML VL IV SCH (03:47)
[2024-10-12] MEDS: methylPREDNISolone SOD SUCC 40 MG/ML VL IV SCH ×2 (03:48→11:39)
[2024-10-12] MEDS: SODIUM CHLOR 0.9% PF (SALINE LOCK) 10ML VIAL/SYR IV SCH (03:48)
[2024-10-12] MEDS: GABAPENTIN 300 MG CAP PO SCH ×2 (03:51→11:39)
[2024-10-12] MEDS: HYDROcodone-ACET 5/325MG TAB PO PRN (05:13)
[2024-10-12 07:09] LABS: Hemoglobin 13.9 g/dL (12.2-16.2); Nucleated Red Blood Cells % 0.3 %
[2024-10-12 07:14] LABS: Hematocrit 43.6 % (36.0-46.0); Mean Corpuscular Hemoglobin 24.8 pg (28.0-32.0); Mean Corpuscular Volume 77.8 fL (80.0-100.0)
[2024-10-12 07:23] LABS: Alanine Aminotransferase 30 U/L (7-40); Albumin 3.8 g/dL (3.2-4.8); Anion Gap 13 (5-15); BUN/Creatinine Ratio 13.5 (10.0-20.0); Blood Urea Nitrogen 12 mg/dL (9-23); Calcium 9.5 mg/dL (8.7-10.4); Potassium 4.7 mmol/L (3.5-5.1); Sodium 140 mmol/L (136-145); Total Protein 6.5 g/dL (5.7-8.2)
[2024-10-12 07:31] LABS: Alkaline Phosphatase 128 U/L (46-116); Bilirubin, Total 2.0 mg/dL (0.2-1.0); Carbon Dioxide 19 mmol/L (20-31); Chloride 108 mmol/L (98-107); Glucose 131 mg/dL (74-106)
--- NOTE | 2024-10-12 08:51 | DVHPN2 ---
Subjective 74-year-old female with a history of COPD, hypertension, comes with a chief complaint of shortness of breaths and cough for 3 weeks The chest x-ray showed left lower lobe pneumonia She is also complaining of swelling and several bruises in her bilateral lower extremities She says she lives with her daughter and uses a walker at home The patient appears to also have dementia since she is not sure about the details of her medical history and not sure about the time, Changes from previous H/P or p: Changes Eyes: No Pain, No Vision change, No Conjunctivae inflammation, No Eyelid inflammation, No Other, No Redness ENT: No Ear pain, No Ear discharge, No Nose pain, No Nose discharge, No Nose congestion, No Mouth pain, No Mouth swelling, No Throat pain, No Throat swelling, No Other Cardiovascular: No Chest Pain, No Palpitations, No Orthopnea, No Paroxysmal Noc. Dyspnea, No Edema, No Lt Headedness, No Other Respiratory: Cough; No Dry; Shortness of breath, SOB with excertion; No Wheezing, No Hemoptysis, No Pleuritic Pain, No Sputum; Other (SOB at rest) Gastrointestinal: No Nausea, No Vomiting, No Abdominal Pain, No Diarrhea, No Constipation, No Melena, No Hematochezia, No Other Genitourinary: No Dysuria, No Frequency, No Incontinence, No Hematuria, No Retention, No Other Musculoskeletal: No other, No neck pain, No shoulder pain, No arm pain, No back pain, No hand pain, No leg pain, No foot pain Skin: No Rash, No Lesions, No Jaundice, No Bruising, No Other Objective Vitals Vital Signs Date Time Temp Pulse Resp B/P (MAP) Pulse Ox O2 Delivery O2 Flow Rate FiO2 10/12/24 08:36 97.8 96 18 139/91 (107) 92 97.8 10/12/24 07:42 Room Air* 0 21 General Appearance: Alert Lungs: Other (Diffuse wheezing and crackles at the bases) Cardiovascular: Regular rate, Normal S1, Normal S2 Abdomen: Normal bowel sounds, Soft, No tenderness Extremities: Other (Bilateral edema in the legs 2+ with several bruises) Medications Current Medications Medications Dose Ordered Sig/Freedom Route Start Time Stop Time Status Last Admin Dose Admin Famotidine 20 mg Q12HR IV 10/11/24 22:00 10/12/24 03:47 20 MG Clopidogrel Bisulfate 75 mg DAILY PO 10/12/24 10:00 Albuterol 2.5 mg Q4HPRN PRN NEB 10/11/24 15:45 Ipratropium [place] 0.5 mg Q4HPRN PRN NEB 10/11/24 15:45 Furosemide 20 mg DAILY IV 10/12/24 10:00 Sodium Chloride 10 ml Q8HR IV 10/11/24 22:00 10/12/24 05:13 10 ML Acetaminophen/ Hydrocodone Bitart 1 tab Q4HP PRN PO 10/11/24 15:45 10/12/24 05:13 1 TAB Ondansetron HCl 4 mg Q4HP PRN IV 10/11/24 15:45 Docusate Sodium 100 mg BIDPRN PRN PO 10/11/24 15:45 Acetaminophen 650 mg Q6HP PRN PO 10/11/24 15:45 Nitroglycerin 0.4 mg Q5MINP PRN SL 10/11/24 17:00 Morphine Sulfate 2 mg Q30M PRN IV 10/11/24 17:00 Levofloxacin/ Dextrose 100 ml @ 100 mls/hr DAILY@1700 IV 10/12/24 17:00 Methylprednisolone Sodium Succinate 40 mg Q8HR IV 10/12/24 12:00 Gabapentin 300 mg TID@0400,1200,2000 PO 10/12/24 12:00 Laboratory Results Laboratory Tests 10/12/24 06:34 Chemistry Test 10/11/24 11:46 10/12/24 06:34 Calcium Level 9.4 mg/dL (8.7-10.4) 9.5 mg/dL (8.7-10.4) Albumin 3.8 g/dL (3.2-4.8) Total Protein 6.5 g/dL (5.7-8.2) Cardiac Markers Test 10/11/24 11:46 B-Type Natriuretic Peptide 1162.54 pg/mL (0-100) LFT Test 10/12/24 06:34 Alanine Aminotransferase (ALT) 30 U/L (7-40) Alkaline Phosphatase 128 U/L (46-116) H Aspartate Amino Transferase (AST) 46 U/L (13-40) H Total Bilirubin 2.0 mg/dL (0.2-1.0) H Urinalysis Test 10/11/24 12:08 Urine Color Yellow (Yellow) Urine Clarity Hazy (Clear) H Urine pH 6.5 (5.0-9.0) Urine Specific [place] 1.015 (1.001-1.035) Urine Protein Negative (Negative) Urine Ketones Negative (Negative) Urine Blood Trace /uL (Negative) H Urine Nitrite Negative (Negative) Urine Bilirubin Negative (Negative) Urine Urobilinogen 2 mg/dL (Negative) H Urine Leukocyte Esterase Negative /uL (Negative) Urine RBC 2 /hpf (0 - 4) Urine Microscopic WBC 5 /HPF (0-5) Urine Squamous Epithelial Cells Few /hpf (<5) Urine Bacteria Few /hpf (None Seen) H Urine Hyaline Casts Few /lpf (0 - 2) Urine Glucose Normal mg/dL (Normal) Assessment/Plan Assessment/Plan Left lower lobe pneumonia COPD exacerbation Acute hypoxic respiratory failure Chronic respiratory failure due to COPD COPD Hypertension Bilateral lower extremity edema, rule out DVT History of coronary artery disease and PTCA History of hyperlipidemia History of tobacco smoking History of marijuana use Plan Continue IV Levaquin Get ultrasound of the legs to rule out DVT Solu-Medrol IV Pain management with [place] p.r.n. Resume gabapentin Lasix 20 mg IV daily Echocardiogram is pending Oxygen as needed Resume the home medications Wound care fancy needleworker consult Full code I tried to contact the family at the number listed in the chart, no answer Observe closely Plan discussed with: Patient Date of Service: Oct 12, 2024 Billing Provider: AGUSTIN BUSTAMANTE MD Common Visit Codes: NOT BILLABLE AGUSTIN BUSTAMANTE MD Oct 12, 2024 08:51
[2024-10-12] MEDS: CLOPIDOGREL BISULFATE 75 MG TAB PO SCH (09:45)
[2024-10-12] MEDS: FUROSEMIDE 20 MG/2 ML VIAL IV SCH (09:45)
--- NOTE | 2024-10-12 09:59 | DVH ---
US BiLat Lower DVT HISTORY: edema COMPARISON: None TECHNIQUE: Duplex doppler evaluation of the deep venous system of the lower extremity from the common femoral veins, superficial femoral vein, great saphenous vein, deep femoral vein, popliteal vein, an d calf veins, including color doppler and spectral/pulsed waveform analysis, was performed. FINDINGS: Right: - Common femoral vein: Compressible - Deep femoral vein: Compressible - Femoral vein: Compressible - Popliteal vein: Compressible - Other: Nothing Left: - Common femoral vein: Compressible - Deep femoral vein: Compressible - Femoral vein: Compressible - Popliteal vein: Compressible - Other: Nothing IMPRESSION: No right or left lower extremity deep venous thrombosis.
--- NOTE | 2024-10-12 12:53 | DVHSR ---
APPROVED REPORT EXAM: Two-dimensional and M-mode echocardiogram with Doppler and color Doppler. Blood Pressure: 138/84 mmHg INDICATION Heart Failure RISK FACTORS Height: 5'3", Weight: 176 DIMENSIONS LVDd5.8 (3.8-5.7cm)LA (2D)4.9 (1.9-4.0cm)Aortic Root3.0 (2.0-3.7cm) LVDs5.4 (2.5-4.0cm)LA (MM) (1.9-4.0cm)Aortic Cusp Exc1.5 (1.5-2.0cm) EF (%) 14.0 (55-70%)Rt. Atrium5.8 (1.9-4.0cm)Asc. Aorta3.3 cm IVSd1.1 (0.7-1.1cm)RV (D)4.1 (1.8-2.4cm) PWd0.6 (0.7-1.1cm) Mitral Valve MitralMitral Stenosis E wave0.49m/sMV Mean GR.mmHg A wave0.52m/sMV Peak GR.mmHg E/A ratio0.92D MVAcm2 DECEL [id number] 1/2 Tim[place] Aortic Valve Aortic ValveAortic Stenosis V10.82m/Shirley Mean GR.4mmHg V21.39m/Shirley Peak GR.8mmHg LVOT Diameter2.2 (1.8-2.4cm)Doppler AVA2.24cm2 Pulmonic Valve V20.77m/s Tricuspid Valve TR Velocity2.30m/s [id number] Conclusion lvef 30% dilated LV severe dysfunction of LV RV dysfunction and enlargement left atrium enlarged mild mitral regurg mild to modarte tricuspid regurg L pleural effusion noted
[2024-10-12] MEDS: CLINDAMYCIN 600MG IV 50 ML IV SCH (17:10)
[2024-10-13] VITALS (11 sets, daily range): BP systolic 121–143; BP diastolic 75–89; PULSE 69–90; RESP 16–19; TEMP 98–98.6; O2SAT 90–97
[2024-10-13] MEDS ORDERED: CLIN1CAP70 PO (09:27)
--- NOTE | 2024-10-13 09:32 | DVHDS2 ---
Discharge Summary Date of Admission Oct 11, 2024 at 16:56 Date of Discharge: Oct 13, 2024 Labs/Diagnostic Data: Laboratory Results Test 10/12/24 06:34 10/11/24 20:07 10/11/24 12:08 10/11/24 11:46 White Blood Count 9.7 10^3/uL (4.4-10.8) Red Blood Count 5.60 10^6/uL (4.0-5.20) Hemoglobin 13.9 g/dL (12.2-16.2) Hematocrit 43.6 % (36.0-46.0) Mean Corpuscular Volume 77.8 fL (80.0-100.0) Mean Corpuscular Hemoglobin 24.8 pg (28.0-32.0) Mean Corpuscular Hemoglobin Concent 31.9 g/dL (32.0-36.0) Red Cell Distribution Width 18.5 % (11.8-14.3) Platelet Count 312 10^3/uL (140-450) Mean Platelet Volume 8.3 fL (6.9-10.8) Neutrophils (%) (Auto) 85.3 % (37.0-80.0) Lymphocytes (%) (Auto) 9.1 % (10.0-50.0) Monocytes (%) (Auto) 5.5 % (0.0-12.0) Eosinophils (%) (Auto) 0.0 % (0.0-7.0) Basophils (%) (Auto) 0.1 % (0.0-2.0) Neutrophils # (Auto) 8.3 10 ^3/uL (1.6-8.6) Lymphocytes # (Auto) 0.9 10 ^3/uL (0.4-5.4) Monocytes # (Auto) 0.5 10 ^3/uL (0-1.3) Eosinophils # (Auto) 0 10 ^3/uL (0-0.8) Basophils # (Auto) 0 10 ^3/uL (0-0.2) Nucleated Red Blood Cells 0.3 % Sodium Level 140 mmol/L (136-145) Potassium Level 4.7 mmol/L (3.5-5.1) Chloride Level 108 mmol/L (98-107) Carbon Dioxide Level 19 mmol/L (20-31) Anion Gap 13 (5-15) Blood Urea Nitrogen 12 mg/dL (9-23) Creatinine 0.89 mg/dL (0.550-1.02) Glomerular Filtration Rate Calc 68 mL/min (>90) BUN/Creatinine Ratio 13.5 (10.0-20.0) Serum Glucose 131 mg/dL (74-106) Calcium Level 9.5 mg/dL (8.7-10.4) Total Bilirubin 2.0 mg/dL (0.2-1.0) Aspartate Amino Transferase (AST) 46 U/L (13-40) Alanine Aminotransferase (ALT) 30 U/L (7-40) Alkaline Phosphatase 128 U/L (46-116) Total Protein 6.5 g/dL (5.7-8.2) Albumin 3.8 g/dL (3.2-4.8) Troponin I High Sensitivity 32 ng/L (</=34) Urine Color Yellow (Yellow) Urine Clarity Hazy (Clear) Urine pH 6.5 (5.0-9.0) Urine Specific [place] 1.015 (1.001-1.035) Urine Protein Negative (Negative) Urine Ketones Negative (Negative) Urine Blood Trace /uL (Negative) Urine Nitrite Negative (Negative) Urine Bilirubin Negative (Negative) Urine Urobilinogen 2 mg/dL (Negative) Urine Leukocyte Esterase Negative /uL (Negative) Urine RBC 2 /hpf (0 - 4) Urine Microscopic WBC 5 /HPF (0-5) Urine Squamous Epithelial Cells Few /hpf (<5) Urine Bacteria Few /hpf (None Seen) Urine Hyaline Casts Few /lpf (0 - 2) Urine Glucose Normal mg/dL (Normal) B-Type Natriuretic Peptide 1162.54 pg/mL (0-100) Other Laboratory Tests 10/12/24 06:34 Brief Hx & Hospital Course: Final diagnoses: Left lower lobe pneumonia COPD exacerbation Acute hypoxic respiratory failure Chronic respiratory failure due to COPD COPD BLE cellulitis Hypertension Bilateral lower extremity cellulitis History of coronary artery disease and PTCA History of hyperlipidemia History of tobacco smoking History of marijuana use 74-year-old female who was admitted for cough and shortness of breaths She also had swelling and bruises on her legs DVT was ruled out She has pneumonia on the left lower lobe She was treated with IV antibiotics Because of her allergies she was given Levaquin however because of her prolonged QTC it was switched to clindamycin The patient was on room air She is still on room air she is asymptomatic Patient is stable for discharge on clindamycin for 7 days at home and resume the other home medications and follow up with the primary care physician as soon as possible Condition at Discharge: Stable Final Diagnosis/Problems List Left lower lobe pneumonia COPD exacerbation Acute hypoxic respiratory failure Chronic respiratory failure due to COPD COPD Hypertension Bilateral lower extremity cellulitis History of coronary artery disease and PTCA History of hyperlipidemia History of tobacco smoking History of marijuana use Discharge Disposition: Home SNF Discharge Will this Physician continue t: No Discharge Instruct/Medications Scheduled Aspirin (Sonja Aspirin Ec Low Dose), 1 TAB PO DAILY, (Reported) Cholecalciferol (Vitamin D3), 1 TAB PO DAILY, (Reported) Clindamycin Hcl (Clindamycin Hcl), 1 CAP PO TID Gabapentin (Gabapentin), 300 MG PO TID, (Reported) Ibuprofen (Advil), 200 MG PO BID, (Reported) Lorazepam (Ativan), 0.5 MG PO TID, (Reported) Ondansetron (Zofran), 1 TAB PO Q8HR, (Reported) Sertraline Hcl (Zoloft), 1 TAB PO DAILY, (Reported) Scheduled PRN Hydrocodone-Acetaminophen ([place] 10-325 mg), 1 TAB PO Q6HPRN PRN for MODERATE PAIN, (Reported) Discharge Statement: "Patient was advised to return to the ER or call 911 if any headaches, dizziness, shortness of breath, chest pain, abdominal pain, bleeding, fevers, or worsening of medical condition. Patient was counseled about treatment plan, medications, possible side effects, patientverbalized understanding. All questions were answered to the best of my ability. This discharge took greater then 30 minutes in planning, reviewing documentation, counseling the patient, and discussing with other team members." ASSESSMENT ASSESSMENT Assessment Date of Service: Oct 13, 2024 Billing Provider: AGUSTIN BUSTAMANTE MD Common Visit Codes: NOT BILLABLE AGUSTIN BUSTAMANTE MD Oct 13, 2024 09:32
[2024-10-14] VITALS (11 sets, daily range): BP systolic 134–149; BP diastolic 84–101; PULSE 70–97; RESP 17–19; TEMP 97.2–98; O2SAT 90–98
--- NOTE | 2024-10-14 09:59 | DVHPN2 ---
Subjective No new complaints She did not go home because family is not answering calls Changes from previous H/P or p: Changes Eyes: No Pain, No Vision change, No Conjunctivae inflammation, No Eyelid inflammation, No Other, No Redness ENT: No Ear pain, No Ear discharge, No Nose pain, No Nose discharge, No Nose congestion, No Mouth pain, No Mouth swelling, No Throat pain, No Throat swelling, No Other Cardiovascular: No Chest Pain, No Palpitations, No Orthopnea, No Paroxysmal Noc. Dyspnea, No Edema, No Lt Headedness, No Other Respiratory: Cough; No Dry; Shortness of breath, SOB with excertion; No Wheezing, No Hemoptysis, No Pleuritic Pain, No Sputum; Other (SOB at rest) Gastrointestinal: No Nausea, No Vomiting, No Abdominal Pain, No Diarrhea, No Constipation, No Melena, No Hematochezia, No Other Genitourinary: No Dysuria, No Frequency, No Incontinence, No Hematuria, No Retention, No Other Musculoskeletal: No other, No neck pain, No shoulder pain, No arm pain, No back pain, No hand pain, No leg pain, No foot pain Skin: No Rash, No Lesions, No Jaundice, No Bruising, No Other Objective Vitals Vital Signs Date Time Temp Pulse Resp B/P (MAP) Pulse Ox O2 Delivery O2 Flow Rate FiO2 10/14/24 07:35 97 Room Air 0.0 10/14/24 07:35 21 10/14/24 04:41 97.8 82 17 140/89 (106) 97.8 Intake/Output Intake and Output 10/14/24 07:00 Intake Total 850 ml Balance 850 ml Intake Oral 700 ml IV Total 150 ml # Voids 4 General Appearance: Alert Lungs: Other (Diffuse wheezing and crackles at the bases) Cardiovascular: Regular rate, Normal S1, Normal S2 Abdomen: Normal bowel sounds, Soft, No tenderness Extremities: Other (Bilateral edema in the legs 2+ with several bruises) Medications Current Medications Medications Dose Ordered Sig/Freedom Route Start Time Stop Time Status Last Admin Dose Admin Famotidine 20 mg Q12HR IV 10/11/24 22:00 10/13/24 21:53 20 MG Clopidogrel Bisulfate 75 mg DAILY PO 10/12/24 10:00 10/13/24 10:39 75 MG Albuterol 2.5 mg Q4HPRN PRN NEB 10/11/24 15:45 Ipratropium [place] 0.5 mg Q4HPRN PRN NEB 10/11/24 15:45 Furosemide 20 mg DAILY IV 10/12/24 10:00 10/13/24 10:39 20 MG Sodium Chloride 10 ml Q8HR IV 10/11/24 22:00 10/14/24 06:05 10 ML Acetaminophen/ Hydrocodone Bitart 1 tab Q4HP PRN PO 10/11/24 15:45 10/14/24 03:02 1 TAB Ondansetron HCl 4 mg Q4HP PRN IV 10/11/24 15:45 Docusate Sodium 100 mg BIDPRN PRN PO 10/11/24 15:45 Acetaminophen 650 mg Q6HP PRN PO 10/11/24 15:45 Nitroglycerin 0.4 mg Q5MINP PRN SL 10/11/24 17:00 Morphine Sulfate 2 mg Q30M PRN IV 10/11/24 17:00 Methylprednisolone Sodium Succinate 40 mg Q8HR IV 10/12/24 12:00 10/14/24 06:05 40 MG Gabapentin 300 mg TID@0400,1200,2000 PO 10/12/24 12:00 10/13/24 21:53 300 MG Clindamycin Phosphate 50 ml @ 50 mls/hr Q8H IV 10/12/24 16:00 10/14/24 03:01 50 MLS/HR Laboratory Results Laboratory Tests 10/12/24 06:34 Urinalysis Test 10/11/24 12:08 Urine Color Yellow (Yellow) Urine Clarity Hazy (Clear) H Urine pH 6.5 (5.0-9.0) Urine Specific [place] 1.015 (1.001-1.035) Urine Protein Negative (Negative) Urine Ketones Negative (Negative) Urine Blood Trace /uL (Negative) H Urine Nitrite Negative (Negative) Urine Bilirubin Negative (Negative) Urine Urobilinogen 2 mg/dL (Negative) H Urine Leukocyte Esterase Negative /uL (Negative) Urine RBC 2 /hpf (0 - 4) Urine Microscopic WBC 5 /HPF (0-5) Urine Squamous Epithelial Cells Few /hpf (<5) Urine Bacteria Few /hpf (None Seen) H Urine Hyaline Casts Few /lpf (0 - 2) Urine Glucose Normal mg/dL (Normal) Assessment/Plan Assessment/Plan Left lower lobe pneumonia COPD exacerbation Acute hypoxic respiratory failure Chronic respiratory failure due to COPD COPD Hypertension Bilateral lower extremity edema, rule out DVT History of coronary artery disease and PTCA History of hyperlipidemia History of tobacco smoking History of marijuana use Plan Continue IV Levaquin Get ultrasound of the legs to rule out DVT Solu-Medrol IV Pain management with [place] p.r.n. Resume gabapentin Lasix 20 mg IV daily Echocardiogram is pending Oxygen as needed Resume the home medications Wound care size worker consult Full code I tried to contact the family at the number listed in the chart, no answer Observe closely 10/14/24: DC home once we can get hold of family or caregivers Plan discussed with: Patient Date of Service: Oct 14, 2024 Billing Provider: AGUSTIN BUSTAMANTE MD Common Visit Codes: NOT BILLABLE AGUSTIN BUSTAMANTE MD Oct 14, 2024 09:59
[2024-10-15] VITALS (9 sets, daily range): BP systolic 134–143; BP diastolic 77–94; PULSE 50–90; RESP 18–22; TEMP 36.4; O2SAT 91–97
--- NOTE | 2024-10-15 17:43 | DVHPN2 ---
Subjective No new complaints We talked to her son, he is coming to see her Changes from previous H/P or p: Changes Eyes: No Pain, No Vision change, No Conjunctivae inflammation, No Eyelid inflammation, No Other, No Redness ENT: No Ear pain, No Ear discharge, No Nose pain, No Nose discharge, No Nose congestion, No Mouth pain, No Mouth swelling, No Throat pain, No Throat swelling, No Other Cardiovascular: No Chest Pain, No Palpitations, No Orthopnea, No Paroxysmal Noc. Dyspnea, No Edema, No Lt Headedness, No Other Respiratory: Cough; No Dry; Shortness of breath, SOB with excertion; No Wheezing, No Hemoptysis, No Pleuritic Pain, No Sputum; Other (SOB at rest) Gastrointestinal: No Nausea, No Vomiting, No Abdominal Pain, No Diarrhea, No Constipation, No Melena, No Hematochezia, No Other Genitourinary: No Dysuria, No Frequency, No Incontinence, No Hematuria, No Retention, No Other Musculoskeletal: No other, No neck pain, No shoulder pain, No arm pain, No back pain, No hand pain, No leg pain, No foot pain Skin: No Rash, No Lesions, No Jaundice, No Bruising, No Other Objective Vitals Vital Signs Date Time Temp Pulse Resp B/P (MAP) Pulse Ox O2 Delivery O2 Flow Rate FiO2 10/15/24 12:37 36.4 78 18 96 10/15/24 10:05 Room Air* 0 21 10/15/24 09:39 136/86 Intake/Output Intake and Output 10/15/24 07:00 Intake Total 300 ml Balance 300 ml Intake Oral 200 ml IV Total 100 ml # Voids 5 General Appearance: Alert Lungs: Other (Diffuse wheezing and crackles at the bases) Cardiovascular: Regular rate, Normal S1, Normal S2 Abdomen: Normal bowel sounds, Soft, No tenderness Extremities: Other (Bilateral edema in the legs 2+ with several bruises) Medications Current Medications Medications Dose Ordered Sig/Freedom Route Start Time Stop Time Status Last Admin Dose Admin Famotidine 20 mg Q12HR IV 10/11/24 22:00 10/15/24 09:38 20 MG Clopidogrel Bisulfate 75 mg DAILY PO 10/12/24 10:00 10/15/24 09:38 75 MG Albuterol 2.5 mg Q4HPRN PRN NEB 10/11/24 15:45 Ipratropium [place] 0.5 mg Q4HPRN PRN NEB 10/11/24 15:45 Furosemide 20 mg DAILY IV 10/12/24 10:00 10/15/24 09:39 20 MG Sodium Chloride 10 ml Q8HR IV 10/11/24 22:00 10/15/24 14:00 10 ML Acetaminophen/ Hydrocodone Bitart 1 tab Q4HP PRN PO 10/11/24 15:45 10/14/24 22:24 1 TAB Ondansetron HCl 4 mg Q4HP PRN IV 10/11/24 15:45 Docusate Sodium 100 mg BIDPRN PRN PO 10/11/24 15:45 Acetaminophen 650 mg Q6HP PRN PO 10/11/24 15:45 Nitroglycerin 0.4 mg Q5MINP PRN SL 10/11/24 17:00 Morphine Sulfate 2 mg Q30M PRN IV 10/11/24 17:00 Methylprednisolone Sodium Succinate 40 mg Q8HR IV 10/12/24 12:00 10/15/24 14:00 40 MG Gabapentin 300 mg TID@0400,1200,2000 PO 10/12/24 12:00 10/15/24 13:08 300 MG Clindamycin Phosphate 50 ml @ 50 mls/hr Q8H IV 10/12/24 16:00 10/15/24 17:30 50 MLS/HR Laboratory Results Laboratory Tests 10/12/24 06:34 Urinalysis Test 10/11/24 12:08 Urine Color Yellow (Yellow) Urine Clarity Hazy (Clear) H Urine pH 6.5 (5.0-9.0) Urine Specific [place] 1.015 (1.001-1.035) Urine Protein Negative (Negative) Urine Ketones Negative (Negative) Urine Blood Trace /uL (Negative) H Urine Nitrite Negative (Negative) Urine Bilirubin Negative (Negative) Urine Urobilinogen 2 mg/dL (Negative) H Urine Leukocyte Esterase Negative /uL (Negative) Urine RBC 2 /hpf (0 - 4) Urine Microscopic WBC 5 /HPF (0-5) Urine Squamous Epithelial Cells Few /hpf (<5) Urine Bacteria Few /hpf (None Seen) H Urine Hyaline Casts Few /lpf (0 - 2) Urine Glucose Normal mg/dL (Normal) Assessment/Plan Assessment/Plan Left lower lobe pneumonia COPD exacerbation Acute hypoxic respiratory failure Chronic respiratory failure due to COPD COPD Hypertension Bilateral lower extremity edema, rule out DVT History of coronary artery disease and PTCA History of hyperlipidemia History of tobacco smoking History of marijuana use Plan Continue IV Levaquin Get ultrasound of the legs to rule out DVT Solu-Medrol IV Pain management with [place] p.r.n. Resume gabapentin Lasix 20 mg IV daily Echocardiogram is pending Oxygen as needed Resume the home medications Wound care private household worker consult Full code I tried to contact the family at the number listed in the chart, no answer Observe closely 10/14/24: DC home once we can get hold of family or caregivers 10/15/24: Continue the current Tx DC home Plan discussed with: Patient My Orders Orders - AGUSTIN BUSTAMANTE MD Procedure Category Date Status Time Discharge DISCHARGE 10/15/24 Transmitted 11:56 Date of Service: Oct 15, 2024 Billing Provider: AGUSTIN BUSTAMANTE MD Common Visit Codes: NOT BILLABLE AGUSTIN BUSTAMANTE MD Oct 15, 2024 17:43
== END 2024-10-15 23:00 | disposition home or self-care (01) | DRG 177 ==
LOC: EDBD 11:00 → ER 11:00 → OVERFLOW 16:56 → WEST WING 16:59 → TELE-EAST 10-12 04:24 → TELE-CENTR 10-14 13:37 → TELE-WESTW 10-15 01:30 → WEST WING 10-15 02:52
PROVIDERS: ADMIT Internal Medicine Geriatric Medicine; ATTEND Internal Medicine Geriatric Medicine
DX: J15.69 Pneumonia due to other Gram-negative bacteria (principal); I50.21 Acute systolic (congestive) heart failure; J96.21 Acute and chronic respiratory failure with hypoxia; J44.1 Chronic obstructive pulmonary disease with (acute) exacerbation; J44.0 Chronic obstructive pulmonary disease with (acute) lower respiratory infection; L03.115 Cellulitis of right lower limb; L03.116 Cellulitis of left lower limb; I11.0 Hypertensive heart disease with heart failure; J15.9 Unspecified bacterial pneumonia; I25.10 Atherosclerotic heart disease of native coronary artery without angina pectoris; F17.210 Nicotine dependence, cigarettes, uncomplicated; E78.5 Hyperlipidemia, unspecified; E87.6 Hypokalemia; I25.2 Old myocardial infarction; Z90.710 Acquired absence of both cervix and uterus; Z90.49 Acquired absence of other specified parts of digestive tract; Z88.1 Allergy status to other antibiotic agents; Z88.6 Allergy status to analgesic agent; Z88.0 Allergy status to penicillin; Z88.2 Allergy status to sulfonamides
CPT/HCPCS: 36415; 71045; 80048; 80053; 81001; 83880; 84484; 85025; 93005; 93306; 93970; 94640; 96374; 97110; 97116; 97163; 99291; G0378; J1956; J3490